=== PATIENT | male | born 1985 | race Caucasian/White ===

== ENCOUNTER 2020-03-26 10:14 | Emergency (ER) | payer OTHER, SELFPAY ==
[2020-03-26 10:26] VITALS: BP 149/102; PULSE 96; RESP 24; TEMP 36.7; O2SAT 100; BMI 28.3
[2020-03-26 10:31] VITALS: BP 149/102; PULSE 98; TEMP -13.3; TEMP 8.1; O2SAT 100
--- NOTE | 2020-03-26 11:09 | ECG_ITS ---
Test Reason : OVERDOSE Blood Pressure : / mmHG Vent. Rate : 092 BPM Atrial Rate : 092 BPM P-R Int : 158 ms QRS Dur : 102 ms QT Int : 358 ms P-R-T Axes : 041 -01 017 degrees QTc Int : 442 ms Normal sinus rhythm Moderate voltage criteria for LVH, may be normal variant Abnormal ECG No previous ECGs available Referred By: [place] Electronically Signed By:SILVER FOLEY MD
--- NOTE | 2020-03-26 11:09 | ED.OVERDOSE ---
HPI - Overdose General Chief Complaint: Overdose <Claribel Mesa MD - Last Filed: 03/26/20 16:31> Stated Complaint: medication overdose <Claribel Mesa MD - Last Filed: 03/26/20 16:31> Time Seen by Provider: 03/26/20 10:55 <Claribel Mesa MD - Last Filed: 03/26/20 16:31> Source: patient <Claribel Mesa MD - Last Filed: 03/26/20 16:31> Mode of arrival: ambulatory <Claribel Mesa MD - Last Filed: 03/26/20 16:31> Limitations: no limitations <MD Stephenie Gardner Last Filed: 03/26/20 16:31> History of Present Illness HPI Narrative: 35-year-old male history of bipolar presented after he drank alcohol last night, feeling stressed and depressed due to has to leave his apartment in 30 days patient overdosed on lithium (talk 9 pills of 300 mg each and Xanax 7 pills of 0.5 mg each ) <Claribel Mesa MD - Last Filed: 03/26/20 16:31> MD complaint: intentional overdose <Claribel Mesa MD - Last Filed: 03/26/20 16:31> Onset (ago): hour(s) (2) <Claribel Mesa MD - Last Filed: 03/26/20 16:31> Intent: suicide attempt <MD Stephenie Gardner Last Filed: 03/26/20 16:31> How Overdose Was Discovered: other ( drove himself to the hospital) <Claribel Mesa MD - Last Filed: 03/26/20 16:31> Context: Intentional Overdose: relationship problems ( girlfriend moved out of the apartment.), financial issues ( Has to evacuate his apartment in 30 days.) and drug/ETOH problems ( Drank alcohol last night.) <MD Stephenie Gardner Last Filed: 03/26/20 16:31> Related Data Home Medications: Home Medications Medication Instructions Recorded Confirmed dextroamphetamine-amphetamine 35 mg PO DAILY 03/27/20 03/27/20 lamotrigine 200 mg PO BEDTIME 03/27/20 03/27/20 lorazepam 0.5 mg PO DAILY PRN 03/27/20 03/27/20 <Claribel Mesa MD - Last Filed: 03/26/20 16:31> Allergies/Adverse Reactions: Allergies Allergy/AdvReac Type Severity Reaction Status Date / Time Penicillins [PENICILLINS] Allergy Intermediate hives Verified 03/27/20 19:17 <Claribel Mesa MD - Last Filed: 03/26/20 16:31> Review of Systems Review of Systems: Yes all other systems are reviewed and are negative <Claribel Mesa MD - Last Filed: 03/26/20 16:31> Constitutional: Constitutional: Reports as per HPI <Claribel Mesa MD - Last Filed: 03/26/20 16:31> Eyes: Eyes: Reports as per HPI <Claribel Mesa MD - Last Filed: 03/26/20 16:31> ENT: Reports system reviewed and no additional complaints, except as documented <Claribel Mesa MD - Last Filed: 03/26/20 16:31> Cardiovascular: Cardiovascular: Reports as per HPI <Claribel Mesa MD - Last Filed: 03/26/20 16:31> Respiratory: Respiratory: Reports as per HPI <Claribel Mesa MD - Last Filed: 03/26/20 16:31> Gastrointestinal: Gastrointestinal: Reports as per HPI <Claribel Mesa MD - Last Filed: 03/26/20 16:31> Musculoskeletal: Musculoskeletal: Reports no additional musculoskeletal complaints <Claribel Mesa MD - Last Filed: 03/26/20 16:31> Neurologic: Reports system reviewed and no additional complaints, except as documented <Claribel Mesa MD - Last Filed: 03/26/20 16:31> Psychiatric: Psychiatric: Reports as per HPI <Claribel Mesa MD - Last Filed: 03/26/20 16:31> PMFSH Past Medical History Medical History: Medical History Bipolar disorder Psychosis <Claribel Mesa MD - Last Filed: 03/26/20 16:31> Social History Social History: Social History Alcohol intake: current Smoking Status: Smoker, status unknown Use of substances other than those prescribed or required for medical reasons: Yes Advance Directives: No Advance Directives Information Provided: Yes Suicidal Behavior: History of suicide attemps Current/Past Psychiatric Disorders: Alcohol abuse, ADHD, Psychotic disorder and Substance abuse <Claribel Mesa MD - Last Filed: 03/26/20 16:31> Physical Exam Vital Signs: Vital Signs: Vital Signs Temp Pulse Resp BP Pulse Ox 03/26/20 10:31 8.1 F L 98 149/102 H 100 03/26/20 10:26 98.1 F 96 24 H 149/102 H 100 Body Mass Index 28.3 <Claribel Mesa MD - Last Filed: 03/26/20 16:31> Vital Signs: Vital Signs Temp Pulse Resp BP Pulse Ox 03/26/20 10:31 8.1 F L 98 149/102 H 100 03/26/20 10:26 98.1 F 96 24 H 149/102 H 100 Body Mass Index 28.3 <ERVIN Mcclendon - Last Filed: 03/27/20 08:25> Vital Signs: Vital Signs Temp Pulse Resp BP Pulse Ox 03/26/20 10:31 8.1 F L 98 149/102 H 100 03/26/20 10:26 98.1 F 96 24 H 149/102 H 100 Body Mass Index 28.3 <ERVIN Hull - Last Filed: 03/29/20 09:40> Vital Signs: Vital Signs Temp Pulse Resp BP Pulse Ox 03/26/20 10:31 8.1 F L 98 149/102 H 100 03/26/20 10:26 98.1 F 96 24 H 149/102 H 100 Body Mass Index 28.3 <Kendal Park MD - Last Filed: 03/31/20 06:44> Const: General: cooperative, healthy appearing, comfortable and no acute distress <Claribel Mesa MD - Last Filed: 03/26/20 16:31> Orientation/consciousness: oriented to person <Claribel Mesa MD - Last Filed: 03/26/20 16:31> HENMT: Head: Yes normal to inspection <Claribel Mesa MD - Last Filed: 03/26/20 16:31> Ears: hearing grossly normal bilaterally <Claribel Mesa MD - Last Filed: 03/26/20 16:31> General nose exam: Normal external nose present <Claribel Mesa MD - Last Filed: 03/26/20 16:31> Eyes: General: appearance normal, both eyes and all related structures <Claribel Mesa MD - Last Filed: 03/26/20 16:31> Eyelids: Yes eyelids normal <Claribel Mesa MD - Last Filed: 03/26/20 16:31> Pupils: Equal, round and reactive pupils present <Claribel Mesa MD - Last Filed: 03/26/20 16:31> Neck: Neck: Yes normal visual inspection <Claribel Msea MD - Last Filed: 03/26/20 16:31> Chest: Chest palpation & inspection: normal inspection of the chest <Claribel Mesa MD - Last Filed: 03/26/20 16:31> Resp: Effort & Inspection: normal respiratory effort <Claribel Mesa MD - Last Filed: 03/26/20 16:31> Cardio: Jugular venous distension: no JVD <Claribel Mesa MD - Last Filed: 03/26/20 16:31> Palpation: normal PMI <Claribel Mesa MD - Last Filed: 03/26/20 16:31> Rate: regular rate <Claribel Mesa MD - Last Filed: 03/26/20 16:31> Rhythm: regular rhythm <Claribel Mesa MD - Last Filed: 03/26/20 16:31> Bruits: Abdominal aortic bruit present <Claribel Mesa MD - Last Filed: 03/26/20 16:31> GI: Inspection: Yes normal to inspection <Claribel Mesa MD - Last Filed: 03/26/20 16:31> Palpation (GI): Abdominal aortic bruit present <Claribel Mesa MD - Last Filed: 03/26/20 16:31> Percussion: Yes normal to percussion <Claribel Mesa MD - Last Filed: 03/26/20 16:31> : General: Yes no CVA tenderness <Claribel Mesa MD - Last Filed: 03/26/20 16:31> Back/Spine/Pelvis: Back: no CVA tenderness <Claribel Mesa MD - Last Filed: 03/26/20 16:31> Skin: General skin exam: no rashes or lesions noted and elasticity normal <Claribel Mesa MD - Last Filed: 03/26/20 16:31> Neuro: General: oriented to person <Claribel Mesa MD - Last Filed: 03/26/20 16:31> Cranial nerves: Yes Equal, round and reactive pupils present <Claribel Mesa MD - Last Filed: 03/26/20 16:31> Extrem: General: Yes normal to inspection <Claribel Mesa MD - Last Filed: 03/26/20 16:31> Psych: Appearance: grossly normal <Claribel Mesa MD - Last Filed: 03/26/20 16:31> Mental Status: mental status grossly normal <Claribel Mesa MD - Last Filed: 03/26/20 16:31> Speech and movement: Normal speech and movement present <Claribel Mesa MD - Last Filed: 03/26/20 16:31> Affect: normal affect <Claribel Mesa MD - Last Filed: 03/26/20 16:31> Attitude: cooperative <Claribel Mesa MD - Last Filed: 03/26/20 16:31> Thought process: Normal thought process present <Claribel Mesa MD - Last Filed: 03/26/20 16:31> Thought content: Normal thought content present <Claribel Mesa MD - Last Filed: 03/26/20 16:31> Insight: Fair insight present (Psych) <Claribel Mesa MD - Last Filed: 03/26/20 16:31> Judgement: Poor judgement present (Psych) <Claribel Mesa MD - Last Filed: 03/26/20 16:31> Course Course Course Narrative: 35-year-old male presented after drinking alcohol and fell depressed overdosed in his own home medication ( took 9 pills of lithium 300 mg each and 7 pills of Xanax 0.5 mg each ). <Claribel Mesa MD - Last Filed: 03/26/20 16:31> MDM - Overdose MDM Narrative Medical decision making narrative: 35 years old male history of bipolar, due to feeling depressed patient overdosed on [place] /Xanax. Case was discussed with poison control to check kidney function /EKG/lithium level. First lithium level was subtherapeutic repeat lithium in 4 hours was increased, reconsulted poison Control who recommended to give IV fluids and repeat lithium after. Case signed out to Dr. Park to check repeat lithium /BHN in consult. <Claribel Mesa MD - Last Filed: 03/26/20 16:31> Lab Data Result diagrams: : 03/26/20 11:20 03/26/20 11:20 <Claribel Mesa MD - Last Filed: 03/26/20 16:31> Labs: Lab Results 03/26/20 03/26/20 03/26/20 Range/Units 11:19 11:19 11:20 WBC (4.8-10.8) X10*3/uL RBC (4.60-5.80) X10*6/uL Hgb (14.0-18.0) g/dl Hct (42-52) % MCV (80-98) fL MCH (27.0-33.0) pg MCHC (31.0-36.0) g/dl RDW (11.0-16.0) % Plt Count (160-400) X10*3/uL MPV (9.4-12.4) fL Absolute Nucleated RBC (0.0-0.012) X10*3/uL Nucleated RBC % (auto) (0.0-0.2) /100WBC Sodium (135-145) mmol/L Potassium (3.3-5.1) mmol/l Chloride (96-108) mmol/L Carbon Dioxide (22-29) mmol/L Anion Gap (12-20) BUN (9-16) mg/dL Creatinine (0.5-1.4) mg/dL Estim Creat Clear Calc Estimated GFR Random Glucose (60-115) mg/dL Calcium (8.4-10.2) mg/dL Magnesium (1.6-2.6) mg/dL Total Bilirubin 0.7 (0.0-1.0) mg/dL Direct Bilirubin 0.2 (0.0-0.5) mg/dL AST 21 (5-37) U/L ALT 23 (0-40) U/L Alkaline Phosphatase 41 (39-117) U/L Total Protein 6.5 (6.5-8.0) g/dL Albumin 4.6 (3.5-5.0) g/dL Lipase 24 (8-78) U/L Urine Color Urine Appearance Urine pH (5.0-8.0) Ur Specific [place] (1.005-1.025) Urine Protein (NEG-TRACE) MG/DL Urine Glucose (UA) (NEG) MG/DL Urine Ketones (NEG) MG/DL Urine Blood (NEG) Urine Nitrite (NEG) Ur Leukocyte Esterase (NEG) Salicylates < 5.0 L (15-30) mg/dL Urine Opiates Screen (Not Detect) Acetaminophen (<30) mcg/mL Ur Barbiturates Screen (Not Detect) Ur Phencyclidine Scrn (Not Detect) Ur Amphetamines Screen (Not Detect) U Benzodiazepines Scrn (Not Detect) [place] 0.21 L (0.60-1.20) mmol/L Urine Cocaine Screen (Not Detect) U Marijuana (THC) Screen (Not Detect) Ethyl Alcohol mg/dL 03/26/20 03/26/20 03/26/20 Range/Units 11:20 11:20 11:20 WBC 6.6 (4.8-10.8) X10*3/uL RBC 4.44 L (4.60-5.80) X10*6/uL Hgb 14.1 (14.0-18.0) g/dl Hct 40.8 L (42-52) % MCV 91.9 (80-98) fL MCH 31.8 (27.0-33.0) pg MCHC 34.6 (31.0-36.0) g/dl RDW 13.1 (11.0-16.0) % Plt Count 221 (160-400) X10*3/uL MPV 11.2 (9.4-12.4) fL Absolute Nucleated RBC 0.000 (0.0-0.012) X10*3/uL Nucleated RBC % (auto) 0.0 (0.0-0.2) /100WBC Sodium 140 (135-145) mmol/L Potassium 4.0 (3.3-5.1) mmol/l Chloride 106 (96-108) mmol/L Carbon Dioxide 24 (22-29) mmol/L Anion Gap 14 (12-20) BUN 15 (9-16) mg/dL Creatinine 0.83 (0.5-1.4) mg/dL Estim Creat Clear Calc 154.2 Estimated GFR > 60 Random Glucose 84 (60-115) mg/dL Calcium 9.1 (8.4-10.2) mg/dL Magnesium 2.0 (1.6-2.6) mg/dL Total Bilirubin (0.0-1.0) mg/dL Direct Bilirubin (0.0-0.5) mg/dL AST (5-37) U/L ALT (0-40) U/L Alkaline Phosphatase (39-117) U/L Total Protein (6.5-8.0) g/dL Albumin (3.5-5.0) g/dL Lipase (8-78) U/L Urine Color Urine Appearance Urine pH (5.0-8.0) Ur Specific [place] (1.005-1.025) Urine Protein (NEG-TRACE) MG/DL Urine Glucose (UA) (NEG) MG/DL Urine Ketones (NEG) MG/DL Urine Blood (NEG) Urine Nitrite (NEG) Ur Leukocyte Esterase (NEG) Salicylates (15-30) mg/dL Urine Opiates Screen (Not Detect) Acetaminophen (<30) mcg/mL Ur Barbiturates Screen (Not Detect) Ur Phencyclidine Scrn (Not Detect) Ur Amphetamines Screen (Not Detect) U Benzodiazepines Scrn (Not Detect) [place] (0.60-1.20) mmol/L Urine Cocaine Screen (Not Detect) U Marijuana (THC) Screen (Not Detect) Ethyl Alcohol 11 mg/dL 03/26/20 03/26/20 03/26/20 Range/Units 11:20 15:40 16:41 WBC (4.8-10.8) X10*3/uL RBC (4.60-5.80) X10*6/uL Hgb (14.0-18.0) g/dl Hct (42-52) % MCV (80-98) fL MCH (27.0-33.0) pg MCHC (31.0-36.0) g/dl RDW (11.0-16.0) % Plt Count (160-400) X10*3/uL MPV (9.4-12.4) fL Absolute Nucleated RBC (0.0-0.012) X10*3/uL Nucleated RBC % (auto) (0.0-0.2) /100WBC Sodium (135-145) mmol/L Potassium (3.3-5.1) mmol/l Chloride (96-108) mmol/L Carbon Dioxide (22-29) mmol/L Anion Gap (12-20) BUN (9-16) mg/dL Creatinine (0.5-1.4) mg/dL Estim Creat Clear Calc Estimated GFR Random Glucose (60-115) mg/dL Calcium (8.4-10.2) mg/dL Magnesium (1.6-2.6) mg/dL Total Bilirubin (0.0-1.0) mg/dL Direct Bilirubin (0.0-0.5) mg/dL AST (5-37) U/L ALT (0-40) U/L Alkaline Phosphatase (39-117) U/L Total Protein (6.5-8.0) g/dL Albumin (3.5-5.0) g/dL Lipase (8-78) U/L Urine Color YELLOW Urine Appearance CLEAR Urine pH 6.5 (5.0-8.0) Ur Specific [place] 1.015 (1.005-1.025) Urine Protein NEG (NEG-TRACE) MG/DL Urine Glucose (UA) NEG (NEG) MG/DL Urine Ketones 5 (NEG) MG/DL Urine Blood NEG (NEG) Urine Nitrite NEG (NEG) Ur Leukocyte Esterase NEG (NEG) Salicylates (15-30) mg/dL Urine Opiates Screen (Not Detect) Acetaminophen < 1 (<30) mcg/mL Ur Barbiturates Screen (Not Detect) Ur Phencyclidine Scrn (Not Detect) Ur Amphetamines Screen (Not Detect) U Benzodiazepines Scrn (Not Detect) [place] 0.85 (0.60-1.20) mmol/L Urine Cocaine Screen (Not Detect) U Marijuana (THC) Screen (Not Detect) Ethyl Alcohol mg/dL 03/26/20 03/26/20 Range/Units 16:41 17:57 WBC (4.8-10.8) X10*3/uL RBC (4.60-5.80) X10*6/uL Hgb (14.0-18.0) g/dl Hct (42-52) % MCV (80-98) fL MCH (27.0-33.0) pg MCHC (31.0-36.0) g/dl RDW (11.0-16.0) % Plt Count (160-400) X10*3/uL MPV (9.4-12.4) fL Absolute Nucleated RBC (0.0-0.012) X10*3/uL Nucleated RBC % (auto) (0.0-0.2) /100WBC Sodium (135-145) mmol/L Potassium (3.3-5.1) mmol/l Chloride (96-108) mmol/L Carbon Dioxide (22-29) mmol/L Anion Gap (12-20) BUN (9-16) mg/dL Creatinine (0.5-1.4) mg/dL Estim Creat Clear Calc Estimated GFR Random Glucose (60-115) mg/dL Calcium (8.4-10.2) mg/dL Magnesium (1.6-2.6) mg/dL Total Bilirubin (0.0-1.0) mg/dL Direct Bilirubin (0.0-0.5) mg/dL AST (5-37) U/L ALT (0-40) U/L Alkaline Phosphatase (39-117) U/L Total Protein (6.5-8.0) g/dL Albumin (3.5-5.0) g/dL Lipase (8-78) U/L Urine Color Urine Appearance Urine pH (5.0-8.0) Ur Specific [place] (1.005-1.025) Urine Protein (NEG-TRACE) MG/DL Urine Glucose (UA) (NEG) MG/DL Urine Ketones (NEG) MG/DL Urine Blood (NEG) Urine Nitrite (NEG) Ur Leukocyte Esterase (NEG) Salicylates (15-30) mg/dL Urine Opiates Screen Not Detected (Not Detect) Acetaminophen (<30) mcg/mL Ur Barbiturates Screen Not Detected (Not Detect) Ur Phencyclidine Scrn Not Detected (Not Detect) Ur Amphetamines Screen POSITIVE H (Not Detect) U Benzodiazepines Scrn Not Detected (Not Detect) [place] 0.73 (0.60-1.20) mmol/L Urine Cocaine Screen Not Detected (Not Detect) U Marijuana (THC) Screen POSITIVE H (Not Detect) Ethyl Alcohol mg/dL <Claribel Mesa MD - Last Filed: 03/26/20 16:31> Lab Results 03/26/20 03/26/20 03/26/20 Range/Units 11:19 11:19 11:20 WBC (4.8-10.8) X10*3/uL RBC (4.60-5.80) X10*6/uL Hgb (14.0-18.0) g/dl Hct (42-52) % MCV (80-98) fL MCH (27.0-33.0) pg MCHC (31.0-36.0) g/dl RDW (11.0-16.0) % Plt Count (160-400) X10*3/uL MPV (9.4-12.4) fL Absolute Nucleated RBC (0.0-0.012) X10*3/uL Nucleated RBC % (auto) (0.0-0.2) /100WBC Sodium (135-145) mmol/L Potassium (3.3-5.1) mmol/l Chloride (96-108) mmol/L Carbon Dioxide (22-29) mmol/L Anion Gap (12-20) BUN (9-16) mg/dL Creatinine (0.5-1.4) mg/dL Estim Creat Clear Calc Estimated GFR Random Glucose (60-115) mg/dL Calcium (8.4-10.2) mg/dL Magnesium (1.6-2.6) mg/dL Total Bilirubin 0.7 (0.0-1.0) mg/dL Direct Bilirubin 0.2 (0.0-0.5) mg/dL AST 21 (5-37) U/L ALT 23 (0-40) U/L Alkaline Phosphatase 41 (39-117) U/L Total Protein 6.5 (6.5-8.0) g/dL Albumin 4.6 (3.5-5.0) g/dL Lipase 24 (8-78) U/L Urine Color Urine Appearance Urine pH (5.0-8.0) Ur Specific [place] (1.005-1.025) Urine Protein (NEG-TRACE) MG/DL Urine Glucose (UA) (NEG) MG/DL Urine Ketones (NEG) MG/DL Urine Blood (NEG) Urine Nitrite (NEG) Ur Leukocyte Esterase (NEG) Salicylates < 5.0 L (15-30) mg/dL Urine Opiates Screen (Not Detect) Acetaminophen (<30) mcg/mL Ur Barbiturates Screen (Not Detect) Ur Phencyclidine Scrn (Not Detect) Ur Amphetamines Screen (Not Detect) U Benzodiazepines Scrn (Not Detect) [place] 0.21 L (0.60-1.20) mmol/L Urine Cocaine Screen (Not Detect) U Marijuana (THC) Screen (Not Detect) Ethyl Alcohol mg/dL 03/26/20 03/26/20 03/26/20 Range/Units 11:20 11:20 11:20 WBC 6.6 (4.8-10.8) X10*3/uL RBC 4.44 L (4.60-5.80) X10*6/uL Hgb 14.1 (14.0-18.0) g/dl Hct 40.8 L (42-52) % MCV 91.9 (80-98) fL MCH 31.8 (27.0-33.0) pg MCHC 34.6 (31.0-36.0) g/dl RDW 13.1 (11.0-16.0) % Plt Count 221 (160-400) X10*3/uL MPV 11.2 (9.4-12.4) fL Absolute Nucleated RBC 0.000 (0.0-0.012) X10*3/uL Nucleated RBC % (auto) 0.0 (0.0-0.2) /100WBC Sodium 140 (135-145) mmol/L Potassium 4.0 (3.3-5.1) mmol/l Chloride 106 (96-108) mmol/L Carbon Dioxide 24 (22-29) mmol/L Anion Gap 14 (12-20) BUN 15 (9-16) mg/dL Creatinine 0.83 (0.5-1.4) mg/dL Estim Creat Clear Calc 154.2 Estimated GFR > 60 Random Glucose 84 (60-115) mg/dL Calcium 9.1 (8.4-10.2) mg/dL Magnesium 2.0 (1.6-2.6) mg/dL Total Bilirubin (0.0-1.0) mg/dL Direct Bilirubin (0.0-0.5) mg/dL AST (5-37) U/L ALT (0-40) U/L Alkaline Phosphatase (39-117) U/L Total Protein (6.5-8.0) g/dL Albumin (3.5-5.0) g/dL Lipase (8-78) U/L Urine Color Urine Appearance Urine pH (5.0-8.0) Ur Specific [place] (1.005-1.025) Urine Protein (NEG-TRACE) MG/DL Urine Glucose (UA) (NEG) MG/DL Urine Ketones (NEG) MG/DL Urine Blood (NEG) Urine Nitrite (NEG) Ur Leukocyte Esterase (NEG) Salicylates (15-30) mg/dL Urine Opiates Screen (Not Detect) Acetaminophen (<30) mcg/mL Ur Barbiturates Screen (Not Detect) Ur Phencyclidine Scrn (Not Detect) Ur Amphetamines Screen (Not Detect) U Benzodiazepines Scrn (Not Detect) [place] (0.60-1.20) mmol/L Urine Cocaine Screen (Not Detect) U Marijuana (THC) Screen (Not Detect) Ethyl Alcohol 11 mg/dL 03/26/20 03/26/20 03/26/20 Range/Units 11:20 15:40 16:41 WBC (4.8-10.8) X10*3/uL RBC (4.60-5.80) X10*6/uL Hgb (14.0-18.0) g/dl Hct (42-52) % MCV (80-98) fL MCH (27.0-33.0) pg MCHC (31.0-36.0) g/dl RDW (11.0-16.0) % Plt Count (160-400) X10*3/uL MPV (9.4-12.4) fL Absolute Nucleated RBC (0.0-0.012) X10*3/uL Nucleated RBC % (auto) (0.0-0.2) /100WBC Sodium (135-145) mmol/L Potassium (3.3-5.1) mmol/l Chloride (96-108) mmol/L Carbon Dioxide (22-29) mmol/L Anion Gap (12-20) BUN (9-16) mg/dL Creatinine (0.5-1.4) mg/dL Estim Creat Clear Calc Estimated GFR Random Glucose (60-115) mg/dL Calcium (8.4-10.2) mg/dL Magnesium (1.6-2.6) mg/dL Total Bilirubin (0.0-1.0) mg/dL Direct Bilirubin (0.0-0.5) mg/dL AST (5-37) U/L ALT (0-40) U/L Alkaline Phosphatase (39-117) U/L Total Protein (6.5-8.0) g/dL Albumin (3.5-5.0) g/dL Lipase (8-78) U/L Urine Color YELLOW Urine Appearance CLEAR Urine pH 6.5 (5.0-8.0) Ur Specific [place] 1.015 (1.005-1.025) Urine Protein NEG (NEG-TRACE) MG/DL Urine Glucose (UA) NEG (NEG) MG/DL Urine Ketones 5 (NEG) MG/DL Urine Blood NEG (NEG) Urine Nitrite NEG (NEG) Ur Leukocyte Esterase NEG (NEG) Salicylates (15-30) mg/dL Urine Opiates Screen (Not Detect) Acetaminophen < 1 (<30) mcg/mL Ur Barbiturates Screen (Not Detect) Ur Phencyclidine Scrn (Not Detect) Ur Amphetamines Screen (Not Detect) U Benzodiazepines Scrn (Not Detect) [place] 0.85 (0.60-1.20) mmol/L Urine Cocaine Screen (Not Detect) U Marijuana (THC) Screen (Not Detect) Ethyl Alcohol mg/dL 03/26/20 03/26/20 Range/Units 16:41 17:57 WBC (4.8-10.8) X10*3/uL RBC (4.60-5.80) X10*6/uL Hgb (14.0-18.0) g/dl Hct (42-52) % MCV (80-98) fL MCH (27.0-33.0) pg MCHC (31.0-36.0) g/dl RDW (11.0-16.0) % Plt Count (160-400) X10*3/uL MPV (9.4-12.4) fL Absolute Nucleated RBC (0.0-0.012) X10*3/uL Nucleated RBC % (auto) (0.0-0.2) /100WBC Sodium (135-145) mmol/L Potassium (3.3-5.1) mmol/l Chloride (96-108) mmol/L Carbon Dioxide (22-29) mmol/L Anion Gap (12-20) BUN (9-16) mg/dL Creatinine (0.5-1.4) mg/dL Estim Creat Clear Calc Estimated GFR Random Glucose (60-115) mg/dL Calcium (8.4-10.2) mg/dL Magnesium (1.6-2.6) mg/dL Total Bilirubin (0.0-1.0) mg/dL Direct Bilirubin (0.0-0.5) mg/dL AST (5-37) U/L ALT (0-40) U/L Alkaline Phosphatase (39-117) U/L Total Protein (6.5-8.0) g/dL Albumin (3.5-5.0) g/dL Lipase (8-78) U/L Urine Color Urine Appearance Urine pH (5.0-8.0) Ur Specific [place] (1.005-1.025) Urine Protein (NEG-TRACE) MG/DL Urine Glucose (UA) (NEG) MG/DL Urine Ketones (NEG) MG/DL Urine Blood (NEG) Urine Nitrite (NEG) Ur Leukocyte Esterase (NEG) Salicylates (15-30) mg/dL Urine Opiates Screen Not Detected (Not Detect) Acetaminophen (<30) mcg/mL Ur Barbiturates Screen Not Detected (Not Detect) Ur Phencyclidine Scrn Not Detected (Not Detect) Ur Amphetamines Screen POSITIVE H (Not Detect) U Benzodiazepines Scrn Not Detected (Not Detect) [place] 0.73 (0.60-1.20) mmol/L Urine Cocaine Screen Not Detected (Not Detect) U Marijuana (THC) Screen POSITIVE H (Not Detect) Ethyl Alcohol mg/dL <ERVIN Mcclendon - Last Filed: 03/27/20 08:25> Lab Results 03/26/20 03/26/20 03/26/20 Range/Units 11:19 11:19 11:20 WBC (4.8-10.8) X10*3/uL RBC (4.60-5.80) X10*6/uL Hgb (14.0-18.0) g/dl Hct (42-52) % MCV (80-98) fL MCH (27.0-33.0) pg MCHC (31.0-36.0) g/dl RDW (11.0-16.0) % Plt Count (160-400) X10*3/uL MPV (9.4-12.4) fL Absolute Nucleated RBC (0.0-0.012) X10*3/uL Nucleated RBC % (auto) (0.0-0.2) /100WBC Sodium (135-145) mmol/L Potassium (3.3-5.1) mmol/l Chloride (96-108) mmol/L Carbon Dioxide (22-29) mmol/L Anion Gap (12-20) BUN (9-16) mg/dL Creatinine (0.5-1.4) mg/dL Estim Creat Clear Calc Estimated GFR Random Glucose (60-115) mg/dL Calcium (8.4-10.2) mg/dL Magnesium (1.6-2.6) mg/dL Total Bilirubin 0.7 (0.0-1.0) mg/dL Direct Bilirubin 0.2 (0.0-0.5) mg/dL AST 21 (5-37) U/L ALT 23 (0-40) U/L Alkaline Phosphatase 41 (39-117) U/L Total Protein 6.5 (6.5-8.0) g/dL Albumin 4.6 (3.5-5.0) g/dL Lipase 24 (8-78) U/L Urine Color Urine Appearance Urine pH (5.0-8.0) Ur Specific [place] (1.005-1.025) Urine Protein (NEG-TRACE) MG/DL Urine Glucose (UA) (NEG) MG/DL Urine Ketones (NEG) MG/DL Urine Blood (NEG) Urine Nitrite (NEG) Ur Leukocyte Esterase (NEG) Salicylates < 5.0 L (15-30) mg/dL Urine Opiates Screen (Not Detect) Acetaminophen (<30) mcg/mL Ur Barbiturates Screen (Not Detect) Ur Phencyclidine Scrn (Not Detect) Ur Amphetamines Screen (Not Detect) U Benzodiazepines Scrn (Not Detect) [place] 0.21 L (0.60-1.20) mmol/L Urine Cocaine Screen (Not Detect) U Marijuana (THC) Screen (Not Detect) Ethyl Alcohol mg/dL 03/26/20 03/26/20 03/26/20 Range/Units 11:20 11:20 11:20 WBC 6.6 (4.8-10.8) X10*3/uL RBC 4.44 L (4.60-5.80) X10*6/uL Hgb 14.1 (14.0-18.0) g/dl Hct 40.8 L (42-52) % MCV 91.9 (80-98) fL MCH 31.8 (27.0-33.0) pg MCHC 34.6 (31.0-36.0) g/dl RDW 13.1 (11.0-16.0) % Plt Count 221 (160-400) X10*3/uL MPV 11.2 (9.4-12.4) fL Absolute Nucleated RBC 0.000 (0.0-0.012) X10*3/uL Nucleated RBC % (auto) 0.0 (0.0-0.2) /100WBC Sodium 140 (135-145) mmol/L Potassium 4.0 (3.3-5.1) mmol/l Chloride 106 (96-108) mmol/L Carbon Dioxide 24 (22-29) mmol/L Anion Gap 14 (12-20) BUN 15 (9-16) mg/dL Creatinine 0.83 (0.5-1.4) mg/dL Estim Creat Clear Calc 154.2 Estimated GFR > 60 Random Glucose 84 (60-115) mg/dL Calcium 9.1 (8.4-10.2) mg/dL Magnesium 2.0 (1.6-2.6) mg/dL Total Bilirubin (0.0-1.0) mg/dL Direct Bilirubin (0.0-0.5) mg/dL AST (5-37) U/L ALT (0-40) U/L Alkaline Phosphatase (39-117) U/L Total Protein (6.5-8.0) g/dL Albumin (3.5-5.0) g/dL Lipase (8-78) U/L Urine Color Urine Appearance Urine pH (5.0-8.0) Ur Specific [place] (1.005-1.025) Urine Protein (NEG-TRACE) MG/DL Urine Glucose (UA) (NEG) MG/DL Urine Ketones (NEG) MG/DL Urine Blood (NEG) Urine Nitrite (NEG) Ur Leukocyte Esterase (NEG) Salicylates (15-30) mg/dL Urine Opiates Screen (Not Detect) Acetaminophen (<30) mcg/mL Ur Barbiturates Screen (Not Detect) Ur Phencyclidine Scrn (Not Detect) Ur Amphetamines Screen (Not Detect) U Benzodiazepines Scrn (Not Detect) [place] (0.60-1.20) mmol/L Urine Cocaine Screen (Not Detect) U Marijuana (THC) Screen (Not Detect) Ethyl Alcohol 11 mg/dL 03/26/20 03/26/20 03/26/20 Range/Units 11:20 15:40 16:41 WBC (4.8-10.8) X10*3/uL RBC (4.60-5.80) X10*6/uL Hgb (14.0-18.0) g/dl Hct (42-52) % MCV (80-98) fL MCH (27.0-33.0) pg MCHC (31.0-36.0) g/dl RDW (11.0-16.0) % Plt Count (160-400) X10*3/uL MPV (9.4-12.4) fL Absolute Nucleated RBC (0.0-0.012) X10*3/uL Nucleated RBC % (auto) (0.0-0.2) /100WBC Sodium (135-145) mmol/L Potassium (3.3-5.1) mmol/l Chloride (96-108) mmol/L Carbon Dioxide (22-29) mmol/L Anion Gap (12-20) BUN (9-16) mg/dL Creatinine (0.5-1.4) mg/dL Estim Creat Clear Calc Estimated GFR Random Glucose (60-115) mg/dL Calcium (8.4-10.2) mg/dL Magnesium (1.6-2.6) mg/dL Total Bilirubin (0.0-1.0) mg/dL Direct Bilirubin (0.0-0.5) mg/dL AST (5-37) U/L ALT (0-40) U/L Alkaline Phosphatase (39-117) U/L Total Protein (6.5-8.0) g/dL Albumin (3.5-5.0) g/dL Lipase (8-78) U/L Urine Color YELLOW Urine Appearance CLEAR Urine pH 6.5 (5.0-8.0) Ur Specific Yermo 1.015 (1.005-1.025) Urine Protein NEG (NEG-TRACE) MG/DL Urine Glucose (UA) NEG (NEG) MG/DL Urine Ketones 5 (NEG) MG/DL Urine Blood NEG (NEG) Urine Nitrite NEG (NEG) Ur Leukocyte Esterase NEG (NEG) Salicylates (15-30) mg/dL Urine Opiates Screen (Not Detect) Acetaminophen < 1 (<30) mcg/mL Ur Barbiturates Screen (Not Detect) Ur Phencyclidine Scrn (Not Detect) Ur Amphetamines Screen (Not Detect) U Benzodiazepines Scrn (Not Detect) Trotwood 0.85 (0.60-1.20) mmol/L Urine Cocaine Screen (Not Detect) U Marijuana (THC) Screen (Not Detect) Ethyl Alcohol mg/dL 03/26/20 03/26/20 Range/Units 16:41 17:57 WBC (4.8-10.8) X10*3/uL RBC (4.60-5.80) X10*6/uL Hgb (14.0-18.0) g/dl Hct (42-52) % MCV (80-98) fL MCH (27.0-33.0) pg MCHC (31.0-36.0) g/dl RDW (11.0-16.0) % Plt Count (160-400) X10*3/uL MPV (9.4-12.4) fL Absolute Nucleated RBC (0.0-0.012) X10*3/uL Nucleated RBC % (auto) (0.0-0.2) /100WBC Sodium (135-145) mmol/L Potassium (3.3-5.1) mmol/l Chloride (96-108) mmol/L Carbon Dioxide (22-29) mmol/L Anion Gap (12-20) BUN (9-16) mg/dL Creatinine (0.5-1.4) mg/dL Estim Creat Clear Calc Estimated GFR Random Glucose (60-115) mg/dL Calcium (8.4-10.2) mg/dL Magnesium (1.6-2.6) mg/dL Total Bilirubin (0.0-1.0) mg/dL Direct Bilirubin (0.0-0.5) mg/dL AST (5-37) U/L ALT (0-40) U/L Alkaline Phosphatase (39-117) U/L Total Protein (6.5-8.0) g/dL Albumin (3.5-5.0) g/dL Lipase (8-78) U/L Urine Color Urine Appearance Urine pH (5.0-8.0) Ur Specific [place] (1.005-1.025) Urine Protein (NEG-TRACE) MG/DL Urine Glucose (UA) (NEG) MG/DL Urine Ketones (NEG) MG/DL Urine Blood (NEG) Urine Nitrite (NEG) Ur Leukocyte Esterase (NEG) Salicylates (15-30) mg/dL Urine Opiates Screen Not Detected (Not Detect) Acetaminophen (<30) mcg/mL Ur Barbiturates Screen Not Detected (Not Detect) Ur Phencyclidine Scrn Not Detected (Not Detect) Ur Amphetamines Screen POSITIVE H (Not Detect) U Benzodiazepines Scrn Not Detected (Not Detect) Trotwood 0.73 (0.60-1.20) mmol/L Urine Cocaine Screen Not Detected (Not Detect) U Marijuana (THC) Screen POSITIVE H (Not Detect) Ethyl Alcohol mg/dL <ERVIN uHll - Last Filed: 03/29/20 09:40> Lab Results 03/26/20 03/26/20 03/26/20 Range/Units 11:19 11:19 11:20 WBC (4.8-10.8) X10*3/uL RBC (4.60-5.80) X10*6/uL Hgb (14.0-18.0) g/dl Hct (42-52) % MCV (80-98) fL MCH (27.0-33.0) pg MCHC (31.0-36.0) g/dl RDW (11.0-16.0) % Plt Count (160-400) X10*3/uL MPV (9.4-12.4) fL Absolute Nucleated RBC (0.0-0.012) X10*3/uL Nucleated RBC % (auto) (0.0-0.2) /100WBC Sodium (135-145) mmol/L Potassium (3.3-5.1) mmol/l Chloride (96-108) mmol/L Carbon Dioxide (22-29) mmol/L Anion Gap (12-20) BUN (9-16) mg/dL Creatinine (0.5-1.4) mg/dL Estim Creat Clear Calc Estimated GFR Random Glucose (60-115) mg/dL Calcium (8.4-10.2) mg/dL Magnesium (1.6-2.6) mg/dL Total Bilirubin 0.7 (0.0-1.0) mg/dL Direct Bilirubin 0.2 (0.0-0.5) mg/dL AST 21 (5-37) U/L ALT 23 (0-40) U/L Alkaline Phosphatase 41 (39-117) U/L Total Protein 6.5 (6.5-8.0) g/dL Albumin 4.6 (3.5-5.0) g/dL Lipase 24 (8-78) U/L Urine Color Urine Appearance Urine pH (5.0-8.0) Ur Specific Y[place] (1.005-1.025) Urine Protein (NEG-TRACE) MG/DL Urine Glucose (UA) (NEG) MG/DL Urine Ketones (NEG) MG/DL Urine Blood (NEG) Urine Nitrite (NEG) Ur Leukocyte Esterase (NEG) Salicylates < 5.0 L (15-30) mg/dL Urine Opiates Screen (Not Detect) Acetaminophen (<30) mcg/mL Ur Barbiturates Screen (Not Detect) Ur Phencyclidine Scrn (Not Detect) Ur Amphetamines Screen (Not Detect) U Benzodiazepines Scrn (Not Detect) Trotwood 0.21 L (0.60-1.20) mmol/L Urine Cocaine Screen (Not Detect) U Marijuana (THC) Screen (Not Detect) Ethyl Alcohol mg/dL 03/26/20 03/26/20 03/26/20 Range/Units 11:20 11:20 11:20 WBC 6.6 (4.8-10.8) X10*3/uL RBC 4.44 L (4.60-5.80) X10*6/uL Hgb 14.1 (14.0-18.0) g/dl Hct 40.8 L (42-52) % MCV 91.9 (80-98) fL MCH 31.8 (27.0-33.0) pg MCHC 34.6 (31.0-36.0) g/dl RDW 13.1 (11.0-16.0) % Plt Count 221 (160-400) X10*3/uL MPV 11.2 (9.4-12.4) fL Absolute Nucleated RBC 0.000 (0.0-0.012) X10*3/uL Nucleated RBC % (auto) 0.0 (0.0-0.2) /100WBC Sodium 140 (135-145) mmol/L Potassium 4.0 (3.3-5.1) mmol/l Chloride 106 (96-108) mmol/L Carbon Dioxide 24 (22-29) mmol/L Anion Gap 14 (12-20) BUN 15 (9-16) mg/dL Creatinine 0.83 (0.5-1.4) mg/dL Estim Creat Clear Calc 154.2 Estimated GFR > 60 Random Glucose 84 (60-115) mg/dL Calcium 9.1 (8.4-10.2) mg/dL Magnesium 2.0 (1.6-2.6) mg/dL Total Bilirubin (0.0-1.0) mg/dL Direct Bilirubin (0.0-0.5) mg/dL AST (5-37) U/L ALT (0-40) U/L Alkaline Phosphatase (39-117) U/L Total Protein (6.5-8.0) g/dL Albumin (3.5-5.0) g/dL Lipase (8-78) U/L Urine Color Urine Appearance Urine pH (5.0-8.0) Ur Specific [place] (1.005-1.025) Urine Protein (NEG-TRACE) MG/DL Urine Glucose (UA) (NEG) MG/DL Urine Ketones (NEG) MG/DL Urine Blood (NEG) Urine Nitrite (NEG) Ur Leukocyte Esterase (NEG) Salicylates (15-30) mg/dL Urine Opiates Screen (Not Detect) Acetaminophen (<30) mcg/mL Ur Barbiturates Screen (Not Detect) Ur Phencyclidine Scrn (Not Detect) Ur Amphetamines Screen (Not Detect) U Benzodiazepines Scrn (Not Detect) Trotwood (0.60-1.20) mmol/L Urine Cocaine Screen (Not Detect) U Marijuana (THC) Screen (Not Detect) Ethyl Alcohol 11 mg/dL 03/26/20 03/26/20 03/26/20 Range/Units 11:20 15:40 16:41 WBC (4.8-10.8) X10*3/uL RBC (4.60-5.80) X10*6/uL Hgb (14.0-18.0) g/dl Hct (42-52) % MCV (80-98) fL MCH (27.0-33.0) pg MCHC (31.0-36.0) g/dl RDW (11.0-16.0) % Plt Count (160-400) X10*3/uL MPV (9.4-12.4) fL Absolute Nucleated RBC (0.0-0.012) X10*3/uL Nucleated RBC % (auto) (0.0-0.2) /100WBC Sodium (135-145) mmol/L Potassium (3.3-5.1) mmol/l Chloride (96-108) mmol/L Carbon Dioxide (22-29) mmol/L Anion Gap (12-20) BUN (9-16) mg/dL Creatinine (0.5-1.4) mg/dL Estim Creat Clear Calc Estimated GFR Random Glucose (60-115) mg/dL Calcium (8.4-10.2) mg/dL Magnesium (1.6-2.6) mg/dL Total Bilirubin (0.0-1.0) mg/dL Direct Bilirubin (0.0-0.5) mg/dL AST (5-37) U/L ALT (0-40) U/L Alkaline Phosphatase (39-117) U/L Total Protein (6.5-8.0) g/dL Albumin (3.5-5.0) g/dL Lipase (8-78) U/L Urine Color YELLOW Urine Appearance CLEAR Urine pH 6.5 (5.0-8.0) Ur Specific [place] 1.015 (1.005-1.025) Urine Protein NEG (NEG-TRACE) MG/DL Urine Glucose (UA) NEG (NEG) MG/DL Urine Ketones 5 (NEG) MG/DL Urine Blood NEG (NEG) Urine Nitrite NEG (NEG) Ur Leukocyte Esterase NEG (NEG) Salicylates (15-30) mg/dL Urine Opiates Screen (Not Detect) Acetaminophen < 1 (<30) mcg/mL Ur Barbiturates Screen (Not Detect) Ur Phencyclidine Scrn (Not Detect) Ur Amphetamines Screen (Not Detect) U Benzodiazepines Scrn (Not Detect) [place]wood 0.85 (0.60-1.20) mmol/L Urine Cocaine Screen (Not Detect) U Marijuana (THC) Screen (Not Detect) Ethyl Alcohol mg/dL 03/26/20 03/26/20 Range/Units 16:41 17:57 WBC (4.8-10.8) X10*3/uL RBC (4.60-5.80) X10*6/uL Hgb (14.0-18.0) g/dl Hct (42-52) % MCV (80-98) fL MCH (27.0-33.0) pg MCHC (31.0-36.0) g/dl RDW (11.0-16.0) % Plt Count (160-400) X10*3/uL MPV (9.4-12.4) fL Absolute Nucleated RBC (0.0-0.012) X10*3/uL Nucleated RBC % (auto) (0.0-0.2) /100WBC Sodium (135-145) mmol/L Potassium (3.3-5.1) mmol/l Chloride (96-108) mmol/L Carbon Dioxide (22-29) mmol/L Anion Gap (12-20) BUN (9-16) mg/dL Creatinine (0.5-1.4) mg/dL Estim Creat Clear Calc Estimated GFR Random Glucose (60-115) mg/dL Calcium (8.4-10.2) mg/dL Magnesium (1.6-2.6) mg/dL Total Bilirubin (0.0-1.0) mg/dL Direct Bilirubin (0.0-0.5) mg/dL AST (5-37) U/L ALT (0-40) U/L Alkaline Phosphatase (39-117) U/L Total Protein (6.5-8.0) g/dL Albumin (3.5-5.0) g/dL Lipase (8-78) U/L Urine Color Urine Appearance Urine pH (5.0-8.0) Ur Specific [place] (1.005-1.025) Urine Protein (NEG-TRACE) MG/DL Urine Glucose (UA) (NEG) MG/DL Urine Ketones (NEG) MG/DL Urine Blood (NEG) Urine Nitrite (NEG) Ur Leukocyte Esterase (NEG) Salicylates (15-30) mg/dL Urine Opiates Screen Not Detected (Not Detect) Acetaminophen (<30) mcg/mL Ur Barbiturates Screen Not Detected (Not Detect) Ur Phencyclidine Scrn Not Detected (Not Detect) Ur Amphetamines Screen POSITIVE H (Not Detect) U Benzodiazepines Scrn Not Detected (Not Detect) Trotwood 0.73 (0.60-1.20) mmol/L Urine Cocaine Screen Not Detected (Not Detect) U Marijuana (THC) Screen POSITIVE H (Not Detect) Ethyl Alcohol mg/dL <Kendal Park MD - Last Filed: 03/31/20 06:44> ECG Data Pacemaker model: Normal sinus rhythm at 92 beats per minutes, LVH, normal axis deviation. <Claribel Mesa MD - Last Filed: 03/26/20 16:31> Discharge Plan Discharge Clinical Impression: Drug overdose, Bipolar 1 disorder, depressed, severe <Claribel Mesa MD - Last Filed: 03/26/20 16:31> Patient Disposition: Home, Self-Care <Claribel Mesa MD - Last Filed: 03/26/20 16:31> Instructions: Bipolar Disorder (ED), Suicide Prevention (ED) <Claribel Mesa MD - Last Filed: 03/26/20 16:31> Additional Instructions: Follow up with your Psychiatrist this week for medication management. Follow up with the therapist provided to you by Luis. If you are having recurrent thoughts of self-harm or suicide call 911 or come to the ER for evaluation. <Claribel Mesa MD - Last Filed: 03/26/20 16:31> Prescriptions: No Action lorazepam 0.5 mg tablet 0.5 mg PO DAILY PRN (Reason: Anxiety) RF: 0 dextroamphetamine-amphetamine 20 mg tablet 35 mg PO DAILY RF: 0 lamotrigine 100 mg tablet 200 mg PO BEDTIME RF: 0 <Claribel Mesa MD - Last Filed: 03/26/20 16:31> Stand Alone Forms: Work/School Release <Claribel Mesa MD - Last Filed: 03/26/20 16:31> Interventions: ED Discharge Assessment Last Done: 03/29/20 09:39 <Claribel Mesa MD - Last Filed: 03/26/20 16:31> Discharge Date/Time: 03/29/20 09:41 <Claribel Mesa MD - Last Filed: 03/26/20 16:31> Sign Out Sign Out Data: Patient Sign Out occurred on 03/26/20 at 16:39. After a detailed discussion of the patient's case, care was transferred from Claribel Mesa MD to Kendal Park MD. Sign Out Comment: await for lithium level then bhn consult. Last updated by Claribel Mesa MD at 03/26/20 16:38 <Claribel Mesa MD - Last Filed: 03/26/20 16:31>
[2020-03-26] MEDS: 0.9 % Sodium Chloride 1,000 ML 999 ML IVCONT ×3 (11:22→17:33)
[2020-03-26 11:34] LABS: Hematocrit 40.8 % (42-52); Hemoglobin 14.1 g/dl (14.0-18.0); Mean Corpuscular HGB Conc 34.6 g/dl (31.0-36.0); Mean Corpuscular Hemoglobin 31.8 pg (27.0-33.0); Mean Corpuscular Volume 91.9 fL (80-98); Mean Platelet Volume 11.2 fL (9.4-12.4); Platelet Count 221 X10*3/uL (160-400); Red Blood Count 4.44 X10*6/uL (4.60-5.80); Red Cell Distribution Width 13.1 % (11.0-16.0); White Blood Count 6.6 X10*3/uL (4.8-10.8)
[2020-03-26 11:51] LABS: Acetaminophen LAB < 1 mcg/mL (<30)
[2020-03-26 11:54] LABS: Alanine Aminotransferase 23 U/L (0-40); Albumin Level 4.6 g/dL (3.5-5.0); Alkaline Phosphatase 41 U/L (39-117); Aspartate Amino Transferase 21 U/L (5-37); Bilirubin Direct 0.2 mg/dL (0.0-0.5); Bilirubin Total 0.7 mg/dL (0.0-1.0); Lipase 24 U/L (8-78); Total Protein 6.5 g/dL (6.5-8.0)
[2020-03-26 11:54] LABS: Salicylate < 5.0 mg/dL (15-30)
[2020-03-26 11:56] LABS: Lithium 0.21 mmol/L (0.60-1.20)
[2020-03-26 12:11] LABS: Anion Gap 14 (12-20); Blood Urea Nitrogen 15 mg/dL (9-16); Calcium 9.1 mg/dL (8.4-10.2); Carbon Dioxide 24 mmol/L (22-29); Chloride 106 mmol/L (96-108); Creatinine Clr Calc Pharmacy 154.2; Estimated Glomerular Filt Rate > 60; Glucose Random 84 mg/dL (60-115); Sodium 140 mmol/L (135-145)
[2020-03-26 12:15] LABS: Ethanol 11 mg/dL
--- NOTE | 2020-03-26 13:52 | PC.NURSE ---
pt information faxed to ning
--- NOTE | 2020-03-26 14:09 | PC.NURSE ---
poison control states that the lab levels are good, just want to perform a lithium redraw x4 hours after first draw. will perform at 1500.
[2020-03-26 16:04] LABS: Lithium 0.85 mmol/L (0.60-1.20)
[2020-03-26 16:46] LABS: Glucose Urine UA NEG (NEG); Leukocyte Esterase Urine NEG (NEG); Nitrite Urine NEG (NEG); PH 6.5 (5.0-8.0); Specific Gravity - Urine 1.015 (1.005-1.025); Urine Blood NEG (NEG); Urine Ketones 5 MG/DL (NEG); Urine Protein NEG (NEG-TRACE)
[2020-03-26 16:47] LABS: Color Urine YELLOW
[2020-03-26 16:48] LABS: Appearance Urine CLEAR
[2020-03-26 17:30] LABS: Amphetamine Screen Urine POSITIVE (Not Detect); Barbiturates, Urine Not Detected (Not Detect); Benzodiazepines Screen Urine Not Detected (Not Detect); Cannabinoid Screen Urine POSITIVE (Not Detect); Cocaine Screen Urine Not Detected (Not Detect); Opiate Screen Urine Not Detected (Not Detect); Phencyclidine Screen Urine Not Detected (Not Detect)
[2020-03-26 18:27] LABS: Lithium 0.73 mmol/L (0.60-1.20)
[2020-03-26 18:31] VITALS: BP 117/80; PULSE 88; RESP 18
--- NOTE | 2020-03-26 19:03 | PC.NURSE ---
pt is oob getting numbers from his phone. pt states he doesnt want to answer questions at this time. pt was asked if he felt s1 h1 depressed and stated he needs to think before he answers the question. pt skin pink warm and dry no s/s of distress. pt is calm and cooperative, drink and sandwhich given. steady gait.
--- NOTE | 2020-03-26 22:28 | PC.NURSE ---
poison controll called and they are signing off on this pt. lithium levels reviewed and vitals. pt is stable walking with steady gait. pt is sleeping at this time. skin pink warm and dry.
--- NOTE | 2020-03-27 01:33 | PC.NURSE ---
pt oob to bathroom and for a gingerale. pt skin pink warm and dry, no s/s of distress, steady gait. needs met. pt visable on the monitor.
[2020-03-27 06:37] VITALS: BP 103/72; PULSE 62; RESP 17; TEMP 36.7; O2SAT 97
--- NOTE | 2020-03-27 07:23 | PC.NURSE ---
Report received. PT sleeping in bed. Breathing is even and unlabored. Inpatient bed search in progress.
--- NOTE | 2020-03-27 08:36 | PC.NURSE ---
PT is resting in bed. Calm and cooperative. PT asking to leave. Plan of care explained. PT requesting to speak with [facility] again.
[2020-03-27 08:48] VITALS: BP 117/67; PULSE 62; RESP 18; TEMP 37.1; O2SAT 98
--- NOTE | 2020-03-27 10:09 | PC.NURSE ---
PT is resting in bed. Calm and cooperative. No complaints at this time.
--- NOTE | 2020-03-27 12:05 | PC.NURSE ---
PT is watching TV in bed. Calm and cooperative. No other complaints.
--- NOTE | 2020-03-27 12:45 | PC.NURSE ---
Pt declined to discuss medications, states i don't want you guys to give me anything except maybe ativan, i just want to get the fuck out of here plan of care explained, importance of continuing medication explained, pt continues to decline.
[2020-03-27] MEDS: LORazepam 1 MG TABLET 2 MG PO (13:00)
--- NOTE | 2020-03-27 14:36 | PC.NURSE ---
PT is on the phone with his family. Calm and cooperative. No other complaints.
--- NOTE | 2020-03-27 16:17 | PC.NURSE ---
PT is sleeping in bed. Breathing is even and unlabored. Bed search in progress.
[2020-03-27 20:00] VITALS: RESP 18
[2020-03-27] MEDS: LORazepam 0.5 MG TABLET PO (20:37)
[2020-03-27] MEDS: lamoTRIgine 100 MG TABLET 200 MG PO (20:37)
[2020-03-27 21:54] VITALS: RESP 18
[2020-03-27 23:55] VITALS: RESP 18
--- NOTE | 2020-03-27 23:58 | PC.NURSE ---
S/E: Report received from Andre. Pt watching Tv during shift change. Clear speech. steady gait. Scheduled HS med given along with prn ativan 0.5 mg PO with good effect. NAD. awaiting for inpatient bedsearch. Will continue to monitor.
[2020-03-28 02:00] VITALS: RESP 18
[2020-03-28 03:50] VITALS: RESP 18
[2020-03-28 05:24] VITALS: RESP 18
--- NOTE | 2020-03-28 07:28 | PC.NURSE ---
Report received from NIK Santoro. Pt awake, eatinmh breakfast, affect even.
[2020-03-28 08:00] VITALS: BP 112/71; PULSE 67; RESP 20; TEMP 37.1
[2020-03-28] MEDS: LORazepam 1 MG TABLET PO (08:27)
--- NOTE | 2020-03-28 08:59 | PC.NURSE ---
Pt awake, alert, requesting ativan for anxiety, declining stimulant medication this morning due to anxiety. Pt adament that he is not suicidal, states that 'this was all a stupid mistake. I had too much to drink, I just want to go home.' pt states that he 'will go crazy' if he has to be here any longer. States he has been here all weekend.
[2020-03-28] MEDS: LORazepam 1 MG TABLET 2 MG PO (16:03)
--- NOTE | 2020-03-28 16:10 | PC.NURSE ---
Pt becoming increasingly agitated, re:dispo, yelling and arguing with staff. [facility] will see patient when bed search is exhausted, no exact time given. Pt given ativan 2 mg po. Currently in room, resting in bed.
[2020-03-28 16:50] VITALS: BP 125/79; PULSE 52; RESP 18; TEMP 36.1; O2SAT 99
--- NOTE | 2020-03-28 18:09 | PC.NURSE ---
Pt awake, on telephone. speech pressured. denies si. reports that this was 'a stupid mistake...a cry for attention...everybody makes mistakes.'
--- NOTE | 2020-03-28 20:48 | PC.NURSE ---
Pt asleep at current. No signs of distress. Respirations nonlabored. Continues to be a section 12 bed search.
[2020-03-28] MEDS: lamoTRIgine 100 MG TABLET 200 MG PO (22:06)
[2020-03-28] MEDS: LORazepam 0.5 MG TABLET PO (22:06)
--- NOTE | 2020-03-28 22:20 | PC.NURSE ---
Patient compliant with HS PO medication, administered PRN Ativan 0.5 mg as requested for anxiety, wanted to speak with [facility] clinician, [facility] called to check availability of clinician spoke with Gideon, reported no clinician available for tonight. Patient denied distress, will continue to monitor.
[2020-03-29 07:56] VITALS: BP 112/72; PULSE 57; RESP 17; TEMP 36.8; O2SAT 98
[2020-03-29] MEDS: LORazepam 1 MG TABLET 2 MG PO (08:32)
--- NOTE | 2020-03-29 09:00 | PC.NURSE ---
[facility] in to evaluate
--- NOTE | 2020-03-29 09:05 | PC.NURSE ---
pt seen by ning
--- NOTE | 2020-03-29 09:38 | PC.NURSE ---
Pt seen by n, pt to be discharged, states he is safe to go, has consistently denied si. affect bright.
== END 2020-03-29 09:41 | disposition home or self-care (01) ==
PROVIDERS: Emergency Medicine; Emergency Provider Emergency Medicine
DX: T42.4X2A Poisoning by benzodiazepines, intentional self-harm, initial encounter (principal); T56.892A Toxic effect of other metals, intentional self-harm, initial encounter; Y92.009 Unspecified place in unspecified non-institutional (private) residence as the place of occurrence of the external cause; F31.5 Bipolar disorder, current episode depressed, severe, with psychotic features; Z79.899 Other long term (current) drug therapy; Z72.89 Other problems related to lifestyle
CPT/HCPCS: 36415; 80048; 80076; 80178; 80307; 80320; 81003; 83690; 83735; 85027; 93005; 96360; 96361; 99285; G0480

== ENCOUNTER → 2020-04-14 11:37 | Outpatient (BNVA) | payer SELFPAY | PROVIDERS: Visit Provider Internal Medicine | DX: Z76.89 Persons encountering health services in other specified circumstances (principal) ==

== ENCOUNTER → 2022-09-10 11:46 | Outpatient (BNVA) | payer OTHER, SELFPAY | PROVIDERS: Visit Provider Internal Medicine | DX: S80.871A Other superficial bite, right lower leg, initial encounter (principal); W54.0XXA Bitten by dog, initial encounter | CPT/HCPCS: 99202 ==

== ENCOUNTER → 2022-09-13 12:55 | Outpatient (BNVA) | payer OTHER, SELFPAY | PROVIDERS: Visit Provider Physician Assistant | DX: S80.871A Other superficial bite, right lower leg, initial encounter (principal); W54.0XXA Bitten by dog, initial encounter | CPT/HCPCS: 99213 ==

== ENCOUNTER → 2023-08-08 14:10 | Outpatient (BNVA) | payer OTHER, SELFPAY | PROVIDERS: Visit Provider Physician Assistant | DX: S39.012A Strain of muscle, fascia and tendon of lower back, initial encounter (principal); V89.2XXA Person injured in unspecified motor-vehicle accident, traffic, initial encounter | CPT/HCPCS: 99203 ==

== ENCOUNTER → 2023-08-12 09:32 | Outpatient (BNVA) | payer OTHER, SELFPAY | PROVIDERS: Visit Provider Internal Medicine | DX: S39.012A Strain of muscle, fascia and tendon of lower back, initial encounter (principal); V89.2XXA Person injured in unspecified motor-vehicle accident, traffic, initial encounter | CPT/HCPCS: 99213 ==

== ENCOUNTER → 2024-10-19 10:24 | Outpatient (BNVA) | payer OTHER, SELFPAY | PROVIDERS: Visit Provider Physician Assistant Medical | DX: M23.8X1 Other internal derangements of right knee (principal); S83.411A Sprain of medial collateral ligament of right knee, initial encounter; S83.8X1A Sprain of other specified parts of right knee, initial encounter; X50.1XXA Overexertion from prolonged static or awkward postures, initial encounter | CPT/HCPCS: 73564; 99204 ==

== ENCOUNTER → 2024-11-04 09:28 | Outpatient (BNVA) | payer OTHER, SELFPAY | PROVIDERS: Visit Provider Physician Assistant | DX: M23.91 Unspecified internal derangement of right knee (principal) | CPT/HCPCS: 99213 ==

== ENCOUNTER → 2024-11-16 08:41 | Outpatient (BNVA) | payer OTHER, SELFPAY | PROVIDERS: Visit Provider Physician Assistant Medical | DX: M23.8X1 Other internal derangements of right knee (principal) | CPT/HCPCS: 99213 ==

== ENCOUNTER → 2024-11-30 10:05 | Outpatient (BNVA) | payer OTHER, SELFPAY | PROVIDERS: Visit Provider Physician Assistant Medical | DX: M23.8X1 Other internal derangements of right knee (principal); Z02.79 Encounter for issue of other medical certificate | CPT/HCPCS: 99213 ==

== ENCOUNTER → 2024-12-14 10:12 | Outpatient (BNVA) | payer OTHER, SELFPAY | PROVIDERS: Visit Provider Physician Assistant Medical | DX: M23.91 Unspecified internal derangement of right knee (principal); Z02.79 Encounter for issue of other medical certificate | CPT/HCPCS: 99213 ==

== ENCOUNTER → 2025-01-11 07:55 | Outpatient (BNV) | payer OTHER, SELFPAY | PROVIDERS: Visit Provider Radiology Diagnostic Radiology | DX: M17.11 Unilateral primary osteoarthritis, right knee (principal) | CPT/HCPCS: 73721 ==

== ENCOUNTER 2025-01-11 07:56 | Outpatient (REF) | payer OTHER, SELFPAY ==
--- NOTE | ~2025-01-11 | MR_ITS ---
EXAM: MRI LOWER EXTREMITY JOINT, KNEE, right TECHNIQUE: Multiplanar multisequence MR imaging performed through the right knee without contrast. INDICATION: Internal derangement of the right knee PRIOR: X-ray on October 19, 2024 FINDINGS: Menisci: Lateral Meniscus: Linear oblique intermediate signal in the posterior horn extends to the peripheral surface but not to the articular surface.. There is apparent meniscal cyst 2.5 mm in diameter near the root of the anterior horn of the lateral meniscus raising question of an occult tear. Medial Meniscus: No abnormal signal in the meniscus to suggest a tear. See impression. ACL/PCL: ACL is intact. PCL is intact. Extensor mechanism: There is mild edema like signal superior lateral fat pad of Hoffa. There is mildly increased signal in the deep proximal fibers of the patellar tendon. There is a physiologic volume of joint fluid. There is lateral patellar tilt. Median ridge of patella is 6 mm lateral to the trochlear groove. MCL/LCL: MCL is intact. LCL is intact. Articular cartilage: Patellofemoral Compartment: There is irregular partial and full-thickness articular cartilage defect involving the middle third lower third patella, lateral facet and median ridge with associated reactive marrow signal change in the upper lateral facet and inferior margin of the lateral facet. Medial facet articular cartilage is intact. There is a full-thickness fissure in the middle third trochlea, the junction of trochlear groove and lateral facet. There is irregular partial thickness articular cartilage defect in the superior aspect of lateral trochlea 13 mm wide involving slightly more than half of the cartilage thickness. Lateral Compartment: There is a 4 mm shallow partial thickness articular cartilage defect in the central weightbearing region of the lateral tibial plateau. There is a deep partial thickness articular cartilage defect 9 mm diameter involving the lateral side of the medial femoral condyle near the base of the lateral tibial spine. Medial Compartment: Intact Bones/Marrow: There are small marginal osteophytes involving the medial compartment, lateral compartment, and patellofemoral joint. Aside from a few small benign bone island, and aforementioned reactive marrow signal change in the patella, bone marrow signal is physiologic. Soft tissues: There is an 11 mm multiloculated cyst situated near the PCL footprint and posterior root of the medial meniscus. MR/MR knee RT wo con IMPRESSION: Moderate osteoarthritis with articular cartilage loss greatest involving lateral facet of patella, lateral facet of trochlea, followed by the lateral compartment. See articular cartilage section. Suspected patellar tendon-lateral femoral condyle friction syndrome: There is edema like signal in the superior lateral fat pad of Hoffa. There is moderate patellofemoral incongruence and lateral patellar tilt. 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 There is a small parameniscal cyst near the anterior root of the lateral meniscus raising question of an occult tear. Additionally, there is a multiloculated cyst extending between posterior root of medial meniscus and tibial footprint of PCL. This could represent a parameniscal cyst from an occult root tear of the medial meniscal root versus a ganglion or synovial cyst associated with the PCL. Mild tendinopathy involving the deep proximal fibers of the patellar tendon of unlikely clinical significance. Correlate clinically. Electronically signed by: Phil Velazco MD 01/11/2025 10:29 AM EDT
--- OUTSIDE RECORDS SUMMARY | 2025-01-11 08:00 | XMS_ITS | Encounter Summary ---
Author Organization [facility] Address [address] [place] [id number] Phone Care Team Providers Care Retail Marketing Coordinator Name Role Phone Pcp, Unknown Primary Care Provider Unavailabl e Encounter Details Date Type Department Care Team (Late st Contact Info) Description 11/20/2021 Procedure Pass [facility], Ct Scan - [address] [id number] Social History Tobacco Use Types Packs/Day Years Used Date Smoking Tobacco: Every Day Smokeless Tobacco: Never Sex and Gender Information Value Date Recorded Sex Assigned at Not on file Legal Sex Male 12:01 PM EDT Gender Identity Not on file Sexual Orientation Not on file documented as of this encounter Functional Status * Calculated C-SSRS Risk Score (Lifetime/Recent) Answer Date of Assessment Author No Risk Indicated 11/20/2021 11:39 AM EDT Timmy Garza, NIK * [place] Suicide Severity Rating Scale (Screener/Recent Self-Report) Question Answer Date of Assessment Author 1. Wish to be (Past 1 Month) No 11/20/2021 11:39 AM EDT Jo Ann Frausto, NIK 2. Non-Specific Active Suicidal Thoughts (Past 1 Month) No 11/20/2021 11:39 AM VICTORIAT Jo Ann Frausto, NIK 6. Suicidal Behavior (Lifetime) No 11/20/2021 11:39 AM VICTORIAT Jo Ann Frausto, NIK documented as of this encounter Plan of Treatment Not on file documented as of this encounter Visit Diagnoses Not on filedocumented in this encounter Additional Health Concerns Infection Onset Date Last Indicated Resolved Time CoV-Risk 06/13/2023 06/13/2023 06/24/2023 1:22 AM EST documented as of this encounter Care Teams Retail Marketing Coordinator Relationship Specialty Start Date End Date Pcp, Unknown PCP - General 11/20/21 documented as of this encounter Additional Source Comments The information contained in this document represents components of the legal health record. It is not the complete legal health record.[facility]
== END 2025-01-11 07:57 | disposition home or self-care (01) ==
LOC: HO.MRI 07:56
PROVIDERS: Visit Provider Internal Medicine
DX: M23.91 Unspecified internal derangement of right knee (principal)
CPT/HCPCS: 73721

== ENCOUNTER → 2025-01-11 13:58 | Outpatient (BNVA) | payer OTHER, SELFPAY | PROVIDERS: Visit Provider Physician Assistant Medical | DX: M23.91 Unspecified internal derangement of right knee (principal); M25.861 Other specified joint disorders, right knee; M17.11 Unilateral primary osteoarthritis, right knee; M23.003 Cystic meniscus, unspecified medial meniscus, right knee; M23.000 Cystic meniscus, unspecified lateral meniscus, right knee; Z02.79 Encounter for issue of other medical certificate | CPT/HCPCS: 99213 ==

== ENCOUNTER 2025-01-20 08:00 | Outpatient (RCR) | payer OTHER, SELFPAY ==
--- NOTE | 2024-10-29 07:08 | MHC.PT.EP ---
[facility] [place] Office [place] [facility] [place] Office [address] [place] Gerardo [address] [phone] F: [phone] F: [phone] F: [phone] F: [phone] Physical Therapy Plan of Care Date of Evaluation: 10/29/24 Date of Surgery: Diagnosis: R knee derangement Assessment: Patient is a 39 year old R handed male who presents with s/s consistent with R knee derangement, R knee pain. He works with daily job demands including [email or web address]. Patient past medical history includes fractures on both LE including R proximal tibia. Current impairments include pain, gait mechanics, ROM, strength, activity tolerance and functional mobility. Functional limitations include decreased ability to walk, stand, sleep, climb ladders, and be on feet longer durations. Patient is motivated with good rehab potential. Skilled PT will address impairments and functional limitations in order to achieve goals. Frequency and Duration: The patient will be seen 2x/week for 5 weeks Short Term Goals: I with HEP -2 weeks 90/90 HS lacking < 30 on R - 3 weeks TTP absent - 3 weeks Pain free with walking > 30 minute - 3 weeks Yarder Puncher Goals: hip strenght 4+/5 b/l - 5 weeks LEFS improve by 12 pts - 5 weeks Stair negotiation pain free - 5 weeks Able to return to all daily activities pain free - 5 weeks Treatment Plan: Modalities to reduce pain, spasms and effusion. Manual therapy to restore motion and function. Therapeutic exercise to improve strength and flexibility. Neuromuscular re-education for posture and balance. Therapeutic activities to return to functional activities of daily living. Electronically signed by: Orlando Ramirez, PT Please sign and return to therapist. Thank you for your referral.
--- NOTE | 2025-03-02 14:15 | MHC.PT.EP ---
[facility] [place] Office [place] Office [place] Office [address] Fransisco Gerardo [address] [phone] F: [phone] F: [phone] F: [phone] F: [phone] Physical Therapy Plan of Care Date of Evaluation: 10/29/24 Date of Surgery: Diagnosis: R knee derangement Assessment: Patient is a 39 year old R handed male who presents with s/s consistent with R knee derangement, R knee pain. He works with daily job demands including [employer]. Patient past medical history includes fractures on both LE including R proximal tibia. Current impairments include pain, gait mechanics, ROM, strength, activity tolerance and functional mobility. Functional limitations include decreased ability to walk, stand, sleep, climb ladders, and be on feet longer durations. Patient is motivated with good rehab potential. Skilled PT will address impairments and functional limitations in order to achieve goals. Frequency and Duration: The patient will be seen 2x/week for 5 weeks Short Term Goals: I with HEP -2 weeks 90/90 HS lacking < 30 on R - 3 weeks TTP absent - 3 weeks Pain free with walking > 30 minute - 3 weeks Didactic Program In Dietetics Director Goals: hip strenght 4+/5 b/l - 5 weeks LEFS improve by 12 pts - 5 weeks Stair negotiation pain free - 5 weeks Able to return to all daily activities pain free - 5 weeks Treatment Plan: Modalities to reduce pain, spasms and effusion. Manual therapy to restore motion and function. Therapeutic exercise to improve strength and flexibility. Neuromuscular re-education for posture and balance. Therapeutic activities to return to functional activities of daily living. Electronically signed by: Orlando Ramirez, PT Please sign and return to therapist. Thank you for your referral.
--- NOTE | 2025-03-19 08:59 | MHC.PT.DC ---
[facility] [place] [facility] [place] Office [place] Office [address] Fransisco Gerardo [address] [phone] F: [phone] F: [phone] F: [phone] F: [phone] Physical Therapy Discharge Report Diagnosis: R knee derangement Date of Surgery: Date of Evaluation: 10/29/24 Date of Discharge: 01/20/25 Treatments to Date: 10 Cancellations to Date: No Shows to Date: Discharge Status: Independent with HEP Discharge Summary: 01/20/25: reviewed and re-issued HEP primarily for stretching. answered all questions related to pathology. due to lack of sustained progress on s/s, we will d/c to HEP at this time and refer back to MD for further management as needed. AROM 142 on R. 90/90 lacking 30 on R. TTP still present. I with HEP. LEFS 48/80. Pain noted with stairs and ladder climbing. 01/18/25: reviewed HEP. encouraged pt to continue with hip and knee stretching, hip strength. we discussed appropriate next steps for best management including ortho consult for discerning best next steps as PT has been unable to resolve s/s. 01/11/25: MRI this AM. we will likely finish up last 2 appts then rec consult with ortho. 12/17/24: held some of therex due to pt not feeling up to it. will attempt to resume NV. 12/04/24: pt acquired new inserts to address pronation of foot. we discussed hip strength, mechanics and footwear in depth. added stretching for hip muscles. 11/27/24: pt with good tolerance to above program with edu on mechanics. shuttle band progressed. good mechanics. 11/18/24: progressing well with skilled PT. edu significantly on mechanics and importance of proper footwear and hip strength. 11/11/24: pt has been feeling like hips are tight and contributing to pain. added strength/stretching today with edu on mechanics. assess response and progress HEP next visit. Patient is a 39 year old R handed male who presents with s/s consistent with R knee derangement, R knee pain. He works with daily job demands including [employer]. Patient past medical history includes fractures on both LE including R proximal tibia. Current impairments include pain, gait mechanics, ROM, strength, activity tolerance and functional mobility. Functional limitations include decreased ability to walk, stand, sleep, climb ladders, and be on feet longer durations. Patient is motivated with good rehab potential. Skilled PT will address impairments and functional limitations in order to achieve goals. Electronically signed by: Orlando Ramirez, PT Please sign and return to therapist. Thank you for your referral.
== END 2025-04-08 11:34 | disposition home or self-care (01) ==
LOC: HO.PTCHIC 08:00
PROVIDERS: Visit Provider Physician Assistant Medical
DX: M23.91 Unspecified internal derangement of right knee (principal)
CPT/HCPCS: 97110; 97140; 97161

== ENCOUNTER 2025-02-04 08:43 | Outpatient (AMB) | payer OTHER, SELFPAY ==
--- NOTE | 2025-02-04 08:45 | A.OFFVIS_ITS ---
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 Per [facility] note this is a pivot and twist injury to the right knee. Patient has completed physical therapy here at [facility] and an MRI was done. Patient reports mild pain located at the medial and lateral aspect of knee. He complains of weakness and fears his knee will give out. He states physical therapy has helped. He continues to work with no restrictions. 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 He states he was lifting a ladder, twisting the knee felt pain, did not feel a pop. He was seen seen at [facility] few days later, xrays and MRI was ordered. He was sent to PT and felt some relief but continued. [facility] Medical History Bipolar disorder Psychosis Social History (Updated 02/04/25 @ 08:57 by Felicia Mcelroy Simba) Alcohol intake: current Comment: sleeping Tobacco use type: Smokeless Tobacco Years Smoked: Zyn pouches Current occupation: [employer] Review of Systems Const All systems reviewed & are unremarkable except as noted in HPI and below Physical Exam Vital Signs: BMI result Body Mass Index 31.0 Const General: cooperative and no acute distress Orientation/consciousness: patient oriented x3 Resp Effort & Inspection: normal respiratory effort and able to speak in complete sentences Cardio Peripheral pulses: Peripheral pulses 2+ throughout Neuro General: patient oriented x3 Extrem Other: Right knee normal to inspetion, no erythema or joint effusion, Full ROM with crepitus. No pain along the medial or lateral joint line. Shailesh supple non tender, nvi Office Procedures AMB Joint Injection/Aspiration Joint Injection/Aspiration Primary Site: right knee Prep: site was prepped using aseptic technique, ethochloride spray was applied and injection warnings given Injected: 40 mg of, with 3 mL of, 1% plain lidocaine, 0.25% bupivacaine, in the joint and decadron Approach Used: anterolateral Procedure: The patient tolerated the procedure well and there was some relief with the local anesthesia Coding 16124 - Glenohumeral/Tronchanteric Bursa/Intraarticular Procedure code (CPT) selection complete Results Reviewed Results Reviewed: Xrays were obtained in the office today and personally reviewed by me of the right knee show PF oa MR knee RT wo con IMPRESSION: Moderate osteoarthritis with articular cartilage loss greatest involving lateral facet of patella, lateral facet of trochlea, followed by the lateral compartment. See articular cartilage section. Suspected patellar tendon-lateral femoral condyle friction syndrome: There is edema like signal in the superior lateral fat pad of Hoffa. There is moderate patellofemoral incongruence and lateral patellar tilt. 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 There is a small parameniscal cyst near the anterior root of the lateral meniscus raising question of an occult tear. Additionally, there is a multiloculated cyst extending between posterior root of medial meniscus and tibial footprint of PCL. This could represent a parameniscal cyst from an occult root tear of the medial meniscal root versus a ganglion or synovial cyst associated with the PCL. Mild tendinopathy involving the deep proximal fibers of the patellar tendon of unlikely clinical significance. Correlate clinically. Electronically signed by: Phil Velazco MD 01/11/2025 10:29 AM EDT Assessment & Plan Assessment & Plan (1) Right patellofemoral syndrome: Code(s): M22.2X1 - Patellofemoral disorders, right knee Category: Medical Plan: We discussed options today which includes continued physical therapy to focus more on glute strength and posterior chain strengthening exercises. We also discussed the benefits of steroid injection which can help with his flare-up and continued pain. The patient did consent to injection today in the right knee which she tolerated well. He was also given a prescription for Celebrex to take twice a day for 2 weeks to help with the inflammation. He will continue working without restrictions and he will see me back in 6 weeks for follow up, sooner if needed. Orders: Orders PT Evaluation and Treatment Today M22.2X1 - Patellofemoral disorders, right knee Medications: New celecoxib (Celebrex) 200 mg PO BID 60 caps 3RF 30 days Coding Level of Care Code New Pt Level 3 (11888) Complex EM visit Add On G2211 Diagnoses Right patellofemoral syndrome M22.2X1 CPT Codes Coding - Joint 7: 03368 - Glenohumeral/Tronchanteric Bursa/Intraarticular ([id number])
[2025-02-04 08:57] VITALS: BMI 31.0
--- OUTSIDE RECORDS SUMMARY | 2025-02-04 09:25 | XMS_ITS | Continuity of Care Document ---
Author Name [facility] Organization [facility] Care Team Providers Care Buckle Frame Shaper Name Role Phone [facility] Unavailable Unavailable Problems Combined list of problems from Department of Defense and Veterans Affairs facilities. It does not include entries that were removed or entered in error. Problem Status Onset Date Problem Type Date of Resolution Comments Source visit for: single organ system exam psychiatric Inactive Condition DoD visit for: administrative purpose Active Condition DoD ANKLE SPRAIN Inactive Condition DoD ankle joint pain Active Condition DoD pain during urination (dysuria) Active Condition DoD FLAT FOOT Active Condition DoD patient activity at time of event - running Active Condition DoD OVEREXERTION FROM PROLONGED ACTIVITY Active Condition DoD NICOTINE DEPENDENCE - CONTINUOUS Active Condition DoD PLANTAR FASCIITIS LEFT Active Condition DoD visit for: screening exam Active Condition [facility] Administrative Evaluation Services Active Condition 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 DoD SOMATIC DYSFUNCTION OF THORACIC REGION Active Condition DoD lower back pain Active Condition DoD visit for: examination of subpopulation Active Condition 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 DoD BACKACHE Active Condition DoD NONALLOPATHIC LESIONS THORACIC Active Condition DoD midback pain Active Condition DoD ANKLE SPRAIN LEFT Inactive Condition DoD visit for: ears / hearing exam Active Condition DoD visit for: services physical Active Condition DoD Body Mass Index Active Condition DoD OBESITY Active Condition DoD Patient Education - Dietary Active Condition [facility] Anticipatory Guidance: Inadequate Physical Activity Active Condition DoD INGROWING TOENAIL Active Condition [facility] visit for: screening mental / developmental disorders Inactive Condition DoD visit for: occupational health / fitness exam Inactive Condition DoD Patient Counseling: Inactive Condition D oD Patient Education - Injury Prevention Active Condition DoD visit for: routine eye exam Inactive Condition DoD headache Active Condition DoD RHINITIS Active Condition DoD CONTACT DERMATITIS DUE TO PLANTS Active Condition 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 Reviewed by Dr. Telles [facility] visit for: services physical accession Inactive Condition DoD Allergies, Adverse Reactions, Alerts Combined list of allergies from Department of Defense and Veterans Affairs facilities. It does not include entries that were removed or entered in error. Substance Category Reaction Severity Reaction type Status Date Reported Comments Source AMOXICILLIN Drug allergy (disorder ) Unknown [place] 9 [facility] [place]THROMYCIN (ERYTHROMYCIN BASE) Drug allergy (disorder ) Unknown active 6 [facility] [place], [place] Penicillins Drug allergy (disorder ) Unknown active 6 [facility] [place], [place] Immunizations Combined list of available immunizations from the Department of Defense and Veterans Affairs facilities. Immunization Series Date Given Administered By Site Reaction Lot Number CVX Code Drug Diet Kitchen Cook Status Comments Source influenza virus vaccine, split virus (incl. purified surface antigen)-reti red CODE 1 2009 [id number] Chiron ([facility]) complet ed influenza virus vaccine, split virus (incl. purified surface antigen)- retired CODE [facility] Novel influenza-H1N 1-09, injectable 1 2009 [id number] 127 [employer] (NOV) complet ed Novel influenza -A0L0-49, injectabl e DoD influenza virus vaccine, live, attenuated, for intranasal use 1 2008 [id number] [employer], [employer]. (MED) complet ed influenza virus vaccine, live, attenuate d, for intranasa l use [facility] hepatitis A vaccine, adult dosage 2 2007 [id number] 52 Merck (MSD) complet ed hepatitis A vaccine, adult dosage DoD influenza virus vaccine, live, attenuated, for intranasal use 1 2007 [id number] [employer]. (MED) complet ed influenza virus vaccine, live, attenuate d, for intranasa l use DoD measles, mumps and rubella virus vaccine 1 2005 [id number] Merck (MSD) complet ed measles, mumps and rubella virus vaccine DoD poliovirus vaccine, inactivated 1 2005 [id number] Sanofi Pasteur ([facility]) complet ed polioviru s vaccine, inactivat ed [facility] influenza virus vaccine, split virus (incl. purified surface antigen)-reti red CODE 1 2005 [id number] 15 Sanofi Pasteur ([facility]) complet ed influenza virus vaccine, split virus (incl. purified surface antigen)- retired CODE DoD hepatitis A vaccine, adult dosage 1 2005 [id number] 52 SmithKline (SKB) complet ed hepatitis A vaccine, adult dosage DoD meningococcal polysaccharid e (groups A, C, Y and W-135) diphtheria toxoid conjugate vaccine (MCV4P) 1 2005 [id number] Sanofi Pasteur (PMC) complet ed meningoco ccal polysacch aride (groups A, C, Y and W-135) diphtheri a toxoid conjugate vaccine (MCV4P) DoD tetanus toxoid, reduced diphtheria toxoid, and acellular pertu is vaccine, adsorbed 1 2005 [id number] Sanofi Pasteur (PMC) complet ed tetanus toxoid, reduced diphtheri a toxoid, and acellular pertussis vaccine, adsorbed DoD hepatitis B vaccine, adult dosage 1 2005 NONE 43 (NON) Not Given hepatitis B vaccine, adult dosage DoD Encounters Combined list of: 1) Encounters from Department of Veterans Affairs facilities going backup to the last 18 months, not all VA inpatient encounters are included; 2) Encounters from the Department of Defense facilities going backup to 280 months. Location Location Details Encounter Type Encounter Number Reason For Visit Attending Provider ADM Date DC Date Status [facility] [place] [id number] DEYVI TELLES 10/10 Released w/o Limitations [facility] DIONISIO Rojas(IEP Optomet ry) [facility] Reinaldo Shah [place](C-TMC Er Module) OUTPATIENT [id number] JOSE Ingram 11/19 Released w/o Limitations [facility] DIONISIO Rojas(C-TM C Er Module) [facility] DIONISIO Rojas(C-TMC Er Module) OUTPATIENT [id number] sinus pain/co JAZMINE Harp V 01/10 Released w/o Limitations [facility] DIONISIO Rojas(C-TM C Er Module) [facility] DIONISIO Liang(1CDTF) OUTPATIENT [id number] cdtf screeni DEBI Naidu 02/13 Released w/o Limitations [facility] DIONISIO Rojas(1CDT F) [facility] BASHIR Nielsen([facility] ) OUTPATIENT [id number] need toe nail removed JESSE MURPHY 04/14 Released with Work/Duty Limitations [place] MEDDABASHIR Waddell([facility] Dr) [facility] KATHLEENDATommy Chiang [place]([facility] Dr) OUTPATIENT [id number] R/O left great toenail JESSE MURPHY 04/15 Released with Work/Duty Limitations [facility] BASHIR Morales([facility] Dr) [facility] BASHIR Morales(Preven tive Medicine) OUTPATIENT [id number] W2S KIRTI UBALDO 05/12 Released w/o Limitations [facility] KATHLEENDABASHIR Waddell(Prev entive Medicin e) [facility] KATHLEENDABASHIR Waddell(Nutrit ion Clinic Dr) OUTPATIENT [id number] w2s WILLOW FERRER 05/12 Released w/o Limitations [facility] KATHLEENDABASHIR Waddell(Nutr ition Clinic Dr) [facility] KATHLEENDABASHIR Waddell(Hearin g Conservat ion) OUTPATIENT [id number] annual ROCKY ESTRADA 05/15 Released w/o Limitations [facility] BASHIR Morales(Hear ing Conserv ation) [facility] KATHLEENDATommy Chiang [place]([facility] Dr) OUTPATIENT [id number] lt. ankle FOSUHENESOFY M. 06/18 Released w/o Limitations [facility] BASHIR Morales([facility] Dr) [facility] BASHIR Morales([facility] Dr) OUTPATIENT [id number] upper back pain JUANITA MANUEL Jose 07/27 Released w/o Limitations [facility] BASHIR Morales([facility] Dr) [facility] BASHIR Morales([facility] Dr) OUTPATIENT [id number] back JUANITA MANUEL Jose 08/30 Released w/o Limitations [facility] KATHLEENDABASHIR Waddell([facility] Dr) [facility] KATHLEENDABASHIR Waddell(Chirop ractic Clinic) OUTPATIENT [id number] BACKACH E LENKA MURRAY 09/01 Released w/o Limitations [facility] LUKASC BASHIR Nielsen(Chir opracti c Clinic) [facility] KATHLEENDABASHIR Waddell(Chirop ractic Clinic) OUTPATIENT [id number] lbp LENKA MURRAY 09/06 Released w/o Limitations [facility] MEDDAC BASHIR Nielsen(Chir opracti c Clinic) [facility] MEDDABASHIR Waddell(Optome try Clinic Dr) OUTPATIENT [id number] ree update rx and specs JOSE HIDALGO 09/10 Released w/o Limitations [facility] KATHLEENDABASHIR Waddell(Opto metry Clinic Dr) [facility] MEDDABASHIR Waddell(Chirop ractic Clinic) OUTPATIENT [id number] LENKA MURRAY 09/10 Released w/o Limitations [facility] KATHLEENDABASHIR Waddell(Chir opracti c Clinic) [facility] KATHLEENDATommy Chiang [place](Preven tive Medicine) OUTPATIENT [id number] W2S UBALDO COTTO 09/13 Released w/o Limitations [facility] BASHIR Morales(Prev entive Medicin e) [facility] KATHLEENDABASHIR Waddell(Nutrit ion Clinic Dr) OUTPATIENT [id number] W2S WILLOW FERRER 09/14 Released w/o Limitations [facility] KATHLEENDABASHIR Waddell(Nutr ition Clinic Dr) [facility] MEDDATommy Chiang [place]([facility] Dr) OUTPATIENT [id number] back pain CLINT MUNOZ 12/20 Released with Work/Duty Limitations [facility] BASHIR Morales([facility] Dr) [facility] MEDDABASHIR Waddell(Chirop ractic Clinic) OUTPATIENT [id number] LBP, mechani wale LENKA MURRAY 12/23 Released w/o Limitations [facility] KATHLEENDABASHIR Waddell([facility] opracti c Clinic) [facility] BASHIR Morales(Chirop ractic Clinic) OUTPATIENT [id number] l/s LENKA MURRAY 12/29 Released w/o Limitations [facility] MEDDAC BASHIR Nielsen([facility] opracti c Clinic) [facility] MEDDABASHIR Waddell(Chirop ractic Clinic) OUTPATIENT [id number] l/s LENKA MURRAY 01/05 Released w/o Limitations [facility] [employer] BASHIR Nielsen([facility] opracti c Clinic) [facility] [employer] BASHIR Nielsen([facility] Dr) OUTPATIENT [id number] ROCKY GARDINER 01/10 Released w/o Limitations [facility] BASHIR Morales([facility] Dr) [facility] CAMRYN Chiang [place]([facility] Dr) OUTPATIENT [id number] JUANITA PALENCIA 01/11 Released w/o Limitations [facility] KATHLEENDABASHIR Waddell([facility] Dr) [facility] BASHIR Morales(Preven tive Medicine) OUTPATIENT [id number] w2s LORELEI TATUM 03/14 Released w/o Limitations [facility] BASHIR Morales(Prev entive Medicin e) [facility] KATHLEENDABASHIR Waddell([facility] Dr) OUTPATIENT [id number] lbp, spasms ROCKY ADAM ALAN 04/04 Released with Work/Duty Limitations [facility] BASHIR Morales([facility] ) [facility] KATHLEENDABASHIR Waddell(Hearin g Conservat ion) OUTPATIENT [id number] pre 2008 ROCKY ESTRADA 05/21 Released w/o Limitations [facility] BASHIR Morales(Hear ing Conserv ation) [facility] CAMRYN Chiang [place]([facility] Dr) OUTPATIENT [id number] low back spasm KANNAN RADHA HUI 09/13 Released w/o Limitations [facility] BASHIR Morales([facility] Dr) [facility] BASHIR Morales([facility] Dr) OUTPATIENT [id number] CHAZ Cruz 10/05 Released w/o Limitations [facility] BASHIR Morales([facility] Dr) [facility] BASHIR Morales([facility] Physical Therapy Clinic) OUTPATIENT [id number] Divisio n Safety Day Foot Assessm ent CANDIDO PATEL 11/03 Released w/o Limitations [facility] BASHIR Morales([facility] Physica l Therapy Clinic) [facility] BASHIR Morales([facility] Dr) OUTPATIENT [id number] left foot ALEXIS BLANCO Lily 02/17 Released with Work/Duty Limitations [facility] BASHIR Morales([facility] Dr) [facility] KATHLEENDAC BASHIR Nielsen([facility] Dr) OUTPATIENT [id number] ? BLADDER INFECTI ON SOFY IVEY Jose 03/29 Released w/o Limitations [facility] KATHLEENDAC BASHIR Nielsen([facility] Dr) [facility] [place](Physic al Therapy [facility]) OUTPATIENT [id number] sick call - left ankle JUANI MONTALVO P 04/06 Released w/o Limitations [facility] [place], [place](Phys ical Therapy [facility]) [facility] [place]([facility] Dr) TELE CONSULT [id number] lab results SOFY IVEY 04/12 [facility] [place]([facility] Dr) [facility] [place](Hearin g Conservat ion) OUTPATIENT [id number] RAHUL Velasco 04/21 Released w/[facility] Limitations [facility] [place] [place] [place]Optome try Clinic Dr[facility] OUTPATIENT [id number] PEBBLES Childress V. 05/24 Released w/o Limitations [facility] [place](Opto [facility]ry Clinic Dr) [facility] [place]Hearin [place] Conservat [place] [facility]) OUTPATIENT [id number] hearing test WARREN SUGGS 05/24 Released w/o Limitations [facility] [place](Hear [place] ation [facility]) [facility] [place]([facility] Dr) OUTPATIENT [id number] Chapter Physica l- no profile s CHAZ DIAMOND 05/30 Released w/o Limitations [facility] [place]([facility] Dr) Procedures Combined list of: 1) Procedures from Department of Veterans Affairs facilities [facility], not all VA non-surgical procedures are included; 2) All procedures from the Department of Defense facilities. Procedure Procedure Type Code Date Perfomer Comments Sour e Psychiatric Evaluation Review of Records and Reports Psychiatric Evaluation Review of Records and Reports [id number] 06/21/19 11 COLTON CASSIDY [facility] Threshold Audiogram (Pure Tone) Threshold Audiogram (Pure Tone) [id number] 05/24/20 10 WARREN SUGGS Screening Test Of Visual Acuity, Quantitative, Bilateral Screening Test Of Visual Acuity, Quantitative, Bilateral 67542 05/24/20 10 PEBBLES GARCIA Audiometry Group Testing Audiometry Group Testing 44734 04/21/20 10 RAHUL MELENDEZ Ice cap or collar 04/06/20 10 JUANI MONTALVO Ankle orthosis, ankle gauntlet or similar, with or without joints, prefabricated, [id number] 04/06/20 10 JUANI MONTALVO Physical Therapy: ___ Se ion Segments, 15 Minutes Each Physical Therapy: ___ Session Segments, 15 Minutes Each 63291 04/06/20 10 JUANI MONTALVO Physical Medicine Physical Therapy Evaluation Physical Medicine Physical Therapy Evaluation 36579 04/06/20 10 JUANI MONTALVO Physical Medicine - Group Physical Therapy Se ion Physical Medicine - Group Physical Therapy Session [id number] 11/04/19 10 NICK RODRIGUEZ Motion Anal Computer-Based W/ Dyn Plant Pre Roxana Dur Walk Motion Anal Computer-Based W/ Dyn Plant Press Roxana Dur Walk 67724 11/04/19 10 NICK RODRIGUEZ Screening Test Of Visual Acuity, Quantitative, Bilateral Screening Test Of Visual Acuity, Quantitative, Bilateral 78591 10/06/[address]Supervised Services Provision Of Special Supplies -Supervised Services Provision Of Special Supplies [id number] 05/21/20 09 VESNA MONTGOMERY Threshold Audiogram (Pure Tone) Threshold Audiogram (Pure Tone) 11054 05/21/20 09 VESNA MONTGOMERY Medical Nutrition Therapy Group (2 or More Individual(s)) Medical Nutrition Therapy Group (2 or More Individual(s)) 02257 03/14/[address]Supervised Services Provision Of Educational Supplies -Supervised Services Provision Of Educational Supplies 19846 03/14/20 09 LORELEI TATUM Chiropractic Manip Treatmt (CMT) Spinal Three To Four Region Chiropractic Manip Treatmt (CMT) Spinal Three To Four Region 94677 01/06/20 09 LENKA MURRAY Modalities Heat Hot Packs Modalities Heat Hot Packs 95139 12/30/19 09 LENKA MURRAY Chiropractic Manip Treatmt (CMT) Spinal Three To Four Region Chiropractic Manip Treatmt (CMT) Spinal Three To Four Region 99324 12/30/19 09 LENKA MURRAY Training And Self-Care Skills Training And Self-Care Skills 55590 12/24/19 09 LENKA MURRAY Chiropractic Manip Treatmt (CMT) Spinal Three To Four Region Chiropractic Manip Treatmt (CMT) Spinal Three To Four Region 07535 12/24/19 09 LENKA MURRAY Medical Nutrition Therapy Group (2 or More Individual(s)) Medical Nutrition Therapy Group (2 or More Individual(s)) 57782 09/15/[address]Supervised Services Provision Of Educational Supplies -Supervised Services Provision Of Educational Supplies 09653 09/15/19 09 WILLOW FERRER Exercise cla es, non-physician provider, per se ion 09/14/19 09 UBALDO COTTO Ophthalmological New Patient Start Comprehensive Care Ophthalmological New Patient Start Comprehensive Care 97247 09/11/19 09 JOSE HIDALGO Spectacles Services Fitting Monofocals (Not For Aphakia) Spectacles Services Fitting Monofocals (Not For Aphakia) 19104 09/11/19 09 JOSE HIDALGO Determination Of Refractive State Determination Of Refractive State 68079 09/11/19 09 JOSE HIDALGO Manipulation By Physician, One Area Manipulation By Physician, One Area 60178 09/11/19 09 LENKA MURRAY Chiropractic Manip Treatmt (CMT) Spinal One To Two Regions Chiropractic Manip Treatmt (CMT) Spinal One To Two Regions 10800 09/11/19 09 LENKA MURRAY Modalities Electrical Stimulation Unattended Modalities Electrical Stimulation Unattended 53237 09/11/19 09 LENKA MURRAY Modalities Heat Hot Packs Modalities Heat Hot Packs 63705 09/11/19 09 LENKA MURRAY Chiropractic Manip Treatmt (CMT) Spinal One To Two Regions Chiropractic Manip Treatmt (CMT) Spinal One To Two Regions 42433 09/07/19 09 LENKA MURRAY cmt l/s Dena Modalities Heat Hot Packs Modalities Heat Hot Packs 49743 09/07/19 09 LENKA MURRAY Modalities Electrical Stimulation Unattended Modalities Electrical Stimulation Unattended 98399 09/07/19 09 LENKA MURRAY [facility] Training And Self-Care Skills Training And Self-Care Skills 65431 09/07/19 09 LENKA MURRAY pt. training/ho me care [facility] Chiropractic Manip Treatmt (CMT) Spinal One To Two Regions Chiropractic Manip Treatmt (CMT) Spinal One To Two Regions 94963 09/02/19 09 LENKA MURRAY ls [facility] Manipulation By Physician, One Area Manipulation By Physician, One Area 16489 09/02/19 09 LENKA MURRAY [facility] l/s [facility] Training And Self-Care Skills Training And Self-Care Skills 45425 09/02/19 09 LENKA MURRAY ptFloyd rehab instruction s/home care [facility] Osteopathic Manip Treatment (OMT) 1-2 Body Regions Involved Osteopathic Manip Treatment (OMT) 1-2 Body Regions Involved 54558 07/27/19 09 JUANITA MANUEL [facility] -Supervised Services Provision Of Special Supplies -Supervised Services Provision Of Special Supplies 82622 05/17/20 08 ROBERT SHAH [facility] Threshold Audiogram (Pure Tone) Threshold Audiogram (Pure Tone) 63546 05/17/20 08 ROBERT SHAH [facility] Medical Nutrition Therapy Group (2 or More Individual(s)) Medical Nutrition Therapy Group (2 or More Individual(s)) 06183 05/12/20 08 WILLOW FERRER [facility] Exercise cla es, non-physician provider, per se ion 05/12/20 08 UBALDO COTTO [facility] Complete Permanent Excision Nail, Matrix Left First Toe Complete Permanent Excision Nail, Matrix Left First Toe 08594 04/16/20 08 JESSE MURPHY [facility] Social Work Individual Outpatient Counseling 20-30 Minutes Social Work Individual Outpatient Counseling 20-30 Minutes 32396 11/21/19 07 CLINT CLAY [facility] Screening Test Of Visual Acuity, Quantitative, Bilateral Screening Test Of Visual Acuity, Quantitative, Bilateral 01149 02/14/20 06 ROHAN JEAN-BAPTISTE [facility] Eye Findings Dark Adaptation Exam 02/14/20 06 ROHAN JEAN-BAPTISTE Determination Of Refractive State Determination Of Refractive State 87634 10/11/19 06 DEYVI TELLES Screening Test Of Visual Acuity, Quantitative, Bilateral Screening Test Of Visual Acuity, Quantitative, Bilateral 46375 10/11/19 DEYVI TELLES [facility] Spectacles Services Fitting Monofocals (Not For Aphakia) Spectacles Services Fitting Monofocals (Not For Aphakia) 21944 10/11/19 DEYVI TELLES [facility] INDIVIDUAL PSYCHOTHERAPY, INSIGHT ORIENTED, BEHAVIOR MODIFYING AND/OR SUPPORTIVE, IN AN OFFICE OR OUTPATIENT FACILITY, APPROXIMATELY 20 TO 30 MINUTES WCCT-NN-DSOT WITH THE PATIENT 11/20/19 [facility] DIAGNOSTIC DARK ADAPTATION EXAMINATION WITH INTERPRETATION AND REPORT 02/14/20 [facility] FITTING OF SPECTACLES, EXCEPT FOR APHAKIA; MONOFOCAL 10/11/19 [facility] HEPATITIS A VACCINE (HEPA), ADULT DOSAGE, FOR INTRAMUSCULAR USE 10/02/19 [facility] SKIN TEST; TUBERCULOSIS, INTRADERMAL 09/27/19 [facility] PSYCHIATRIC EVALUATION OF HOSPITAL RECORDS, OTHER PSYCHIATRIC REPORTS, PSYCHOMETRIC AND/OR PROJECTIVE TESTS, AND OTHER ACCUMULATED DATA FOR MEDICALDIAGNOSTIC PURPOSES 06/20/19 11 [facility] PURE TONE AUDIOMETRY (THRESHOLD); AIR ONLY 05/24/20 10 [facility] SCREENING TEST OF VISUAL ACUITY, QUANTITATIVE, BILATERAL 05/24/20 10 [facility] AUDIOMETRIC TESTING OF GROUPS 04/21/20 10 [facility] ANKLE ORTHOSIS, ANKLE GAUNTLET OR SIMILAR, WITH OR WITHOUT JOINTS, PREFABRICATED, [id number] 04/06/20 10 [facility] COLLECTION OF VENOUS BLOOD BY VENIPUNCTURE 02/23/20 10 [facility] COMPREHENSIVE COMPUTER-BASED MOTION ANALYSIS BY VIDEO-TAPING AND 3D KINEMATICS; WITH DYNAMIC PLANTAR PRESSURE MEASUREMENTS DURING WALKING 11/04/19 10 [facility] SCREENING TEST OF VISUAL ACUITY, QUANTITATIVE, BILATERAL 10/06/19 10 [facility] SUPP &MATERIAL (EXCEPT SPECTACLE),PROVID,THE PHYS/OTH QUALIFIED HEALTH WELDING SPECIALIST OVER &ABOVE THOSE USUALLY INCLD W THE OFFICE VISIT/OTH SER RENDERED (LIST DRUG,TRAYS,SUPP,OR MATERIAL PROVID) 05/21/20 09 [facility] MEDICAL NUTRITION THERAPY; GROUP (2 OR MORE INDIVIDUAL(S)), EACH 30 MINUTES 03/14/20 [facility] SCREENING TEST OF VISUAL ACUITY, QUANTITATIVE, BILATERAL 01/12/20 09 [facility] CHIROPRACTIC MANIPULATIVE TREATMENT (CMT); SPINAL, 3-4 REGIONS 01/06/20 [facility] APPLICATION OF A MODALITY TO 1 OR MORE AREAS; HOT OR COLD PACKS 12/30/19 09 [facility] SELF-CARE/HOME MANAGMENT TRAIN (EG,ACT OF DAILY LIVING (ADL) &COMPENSAT TRAIN,MEAL PREPARATION,SAFETY PROCS,AND INSTRUCT IN USE OF ASST TECHNOLOGY DEV/ADPT EQUIP) DIR ONE-ON-ONE CONT,EA 15 MINUTES 12/24/19 [facility] EDUCATIONAL SUPPLIES, SUCH BOOKS, TAPES, AND PAMPHLETS, FOR THE PATIENT'S EDUCATION AT COST TO PHYSICIAN OR OTHER QUALIFIED HEALTH WELDING SPECIALIST 09/14/19 [facility] EXERCISE CLASSES, NON-PHYSICIAN PROVIDER, PER SESSION 09/14/19 [facility] MANUAL THERAPY TECHNIQUES (EG, MOBILIZATION/ MANIPULATION, MANUAL LYMPHATIC DRAINAGE, MANUAL TRACTION), 1 OR MORE REGIONS, EACH 15 MINUTES 09/11/19 [facility] OPHTHALMOLOGICAL SERVICES: MEDICAL EXAMINATION AND EVALUATION WITH INITIATION OF DIAGNOSTIC AND TREATMENT PROGRAM; COMPREHENSIVE, NEW PATIENT, 1 OR MORE VISITS 09/11/19 [facility] CHIROPRACTIC MANIPULATIVE TREATMENT (CMT); SPINAL, 1-2 REGIONS 09/07/19 [facility] CHIROPRACTIC MANIPULATIVE TREATMENT (CMT); SPINAL, 1-2 REGIONS 09/02/19 [facility] OSTEOPATHIC MANIPULATIVE TREATMENT (OMT); 1-2 BODY REGIONS INVOLVED 07/27/19 [facility] SUPP &MATERIAL (EXCEPT SPECTACLE),PROVID,THE PHYS/OTH QUALIFIED HEALTH WELDING SPECIALIST OVER &ABOVE THOSE USUALLY INCLD W THE OFFICE VISIT/OTH SER RENDERED (LIST DRUG,TRAYS,SUPP,OR MATERIAL PROVID) 05/15/20 [facility] EXERCISE CLASSES, NON-PHYSICIAN PROVIDER, PER SESSION 05/10/20 [facility] MEDICAL NUTRITION THERAPY; GROUP (2 OR MORE INDIVIDUAL(S)), EACH 30 MINUTES 05/10/20 [facility] EXCISION OF NAIL AND NAIL MATRIX, PARTIAL OR COMPLETE (EG, INGROWN OR DEFORMED NAIL), FOR PERMANENT REMOVAL 04/15/20 [facility] SKIN TEST; TUBERCULOSIS, INTRADERMAL 03/01/20 08 [facility] COLLECTION OF VENOUS BLOOD BY VENIPUNCTURE 03/01/20 [facility] Social History Combined list of available smoking, tobacco, and other social history from Department of Defense and Veterans Affairs facilities. Social History Type Response Date Comment Sourc e This section is an empty social history section. [employer]
--- OUTSIDE RECORDS SUMMARY | 2025-02-04 09:26 | XMS_ITS | Encounter Summary ---
Author Organization [facility] Address [address] [place] [phone] Phone Care Team Providers Care Vice President Client Services Name Role Phone Pcp, Unknown Primary Care Provider Unavailabl e Encounter Details Date Type Department Care Team (Late st Contact Info) Description 11/20/2021 Procedure Pass [facility], Ct Scan - [address] [address] Social History Tobacco Use Types Packs/Day Years [...] 11:39 AM EDT Timmy Garza, NIK * [place] Suicide Severity Rating Scale (Screener/Recent Self-Report) Question [...] documented as of this encounter Care Teams Vice President Client Services Relationship Specialty Start Date End Date Pcp, Unknown PCP - General 11/20/21 documented as of this encounter Additional Source Comments The information contained in this document represents components of the legal health record. It is not the complete legal health record.[facility]
--- OUTSIDE RECORDS SUMMARY | 2025-02-04 09:26 | XMS_ITS | Clinical Summary ---
Author Organization [facility] Address [address] [address] Phone Care Team Providers Care Director Security Risk Management Name Role Phone Pcp, Unknown Primary Care Provider Unavailabl e Allergies Active Allergy Reactions Criticality Noted Date Comments Amoxicillin Hives 06/13/2023 Penicillins Hives 03/06/2019 Medications dextroamphetami ne-amphetamine (ADDERALL) 20 mg Tab tablet Take 20 mg by mouth daily. Active traMADoL (ULTRAM) 50 mg tablet tramadol 50 mg tablet TAKE 1 TABLET EVERY 6 HOURS NEEDED Active moxifloxacin (VIGAMOX) 0.5 % ophthalmic solution INSTILL 1 DROP INTO AFFECTED EYE(S) 3 TIMES A DAY 3 Active lithium carbonate 300 MG capsule lithium carbonate 300 mg capsule Active lamoTRIgine (LAMICTAL) 150 MG IMMEDIATE release tablet lamotrigine 150 mg tablet Active lamoTRIgine (LAMICTAL) 100 MG IMMEDIATE release tablet TAKE 1 TABLET BY MOUTH DAILY FOR 2 WEEKS THEN TAKE 1.5 TABS BY MOUTH DAILY THEREAFTER Active famotidine (PEPCID) 20 MG tablet Take 1 tablet by mouth 2 (two) times a day. 3 Active DRYSOL DAB-O-MATIC 20 % external solution APPLY TO DRY SKIN IN ARMPITS EVERY NIGHT AT BEDTIME. 3 Active Active Problems No known active problems Social History Tobacco Use Types Packs/Day Years Used Date Smoking Tobacco: Former Cigarettes Smokeless Tobacco: Never Education Answer Date Recorded Are you interested in more education? Not on joceline e 10/05/2022 Are you concerned about learning? Not on file 10/05/2022 No 10/05/2022 No 10/05/2022 Digital Access Answer Date Recorded No 11/03/2022 No 11/03/2022 Reliable internet access at home? Not on file 11/03/2022 Device with a working camera? Not on file Sex and Gender Information Value Date Recorded Sex Assigned at Not on file Legal Sex Male 12:01 PM EDT Gender Identity Not on file Sexual Orientation Not on file Last Filed Vital Signs Vital Sign Reading Time Taken Comments Blood Pressure 117/65 06/13/2023 1:37 PM EST Pulse 62 06/13/2023 1:37 PM EST Temperature 37.1 C (98.7 F) 06/13/2023 1:37 PM EST Respiratory Rate 16 06/13/2023 1:37 PM EST Oxygen Saturation 100% 06/13/2023 1:37 PM EST Inhaled Oxygen Concentration - - Weight 108.9 kg (240 lb) 06/13/2023 1:37 PM EST per pt Height 185.4 cm (6' 1 ) 05/10/2023 5:16 PM EST Body Mass Index 31.66 05/10/2023 5:16 PM EST Plan of Treatment Health Maintenance Due Date Last Done Comments LIPID PANEL 1986 LITHIUM LEVEL 1986 TSH LEVEL 1986 DEPRESSION SCREENING 1998 SMOKING Hx and SMOKELESS TOBACCO SCREENING 1999 HEPATITIS C SCREENING 01/04/2004 HIV ONE-TIME SCREENING (18-6 5 YEARS) 01/04/2004 COVID-19 VACCINE (2 - 2023-2 5 season) 2024 06/12/2021 CREATININE LEVEL 06/13/2024 06/13/2023, 11/20/2021 SCREENING FOR DIABETES 06/13/2026 06/13/2023 Adult Td,Tdap Booster 11/28/2028 11/28/2018 HEPATITIS A VACCINES Aged Out No long er eligible based on patient's age to complete this topic HIB VACCINES Aged Out No longer eligi ble based on patient's age to complete this topic MENINGOCOCCAL VACCINES (ACWY) Aged Out No longer eligible based on patient's age to complete this topic MENINGOCOCCAL VACCINES (B) Aged Out N o longer eligible based on patient's age to complete this topic PNEUMOCOCCAL VACCINES (0-49 years) Aged Out No longer eligible b ased on patient's age to complete this topic Medical Devices Not on file Procedures Procedure Name Priority Date/Time Associated Diagnosis Comments COMPREHENSIVE METABOLIC PANEL Routine 06/13/2023 2:16 PM EST Viral upper respiratory tract infection from Last 3 Months or Most Recently Relevant to Health Maintenance Results * (ABNORMAL) Comprehensive metabolic panel (06/13/2023 2:16 PM EST) SODIUM 140 133 - 146 mmol/L [facility] POTASSIUM 4.2 3.3 - 5.1 mmol/L [facility] CHLORIDE 102 96 - 108 mmol/L [facility] CO2 27 21 - 35 mmol/L [facility] BUN 13 6 - 19 mg/dL [facility] CREATININE 0.80 0.5 - 1.5 mg/dL [facility] GLUCOSE 109(H) 70 - 99 mg/dL [facility] ALBUMIN 4.4 3.9 - 4.8 g/dL [facility] TOTAL PROTEIN 7.2 6.5 - 8.0 g/dL [facility] CALCIUM 9.9 8.4 - 10.3 mg/dL [facility] ALKALINE PHOSPHATASE 54 39 - 117 U/L [facility] TOTAL BILIRUBIN 0.3 0.0 - 1.2 mg/dL [facility] AST 29 0 - 37 U/L [facility] ALT 66(H) 0 - 40 U/L [facility] GLOBULIN 2.8 1 - 4.8 g/dL [facility] EGFR 117 >59 mL/min/1.7 3m2 [facility] Comment:Estimated glomerular filtration rate calculated using the CKD-EPI refit equation. ANION GAP 15 10 - 20 mmol/L [facility] Blood 06/13/2023 2:16 PM EST 06/13/2023 5:54 PM EST Herminia Samuel [facility] BLOOD ORDERABLES Final Result [address] [address] from Last 3 Months or Most Recently Relevant to Health Maintenance Insurance Care Teams Director Security Risk Management Relationship Specialty Start Date End Date Pcp, Unknown PCP - General 11/20/21 Additional Source Comments The information contained in this document represents components of the legal health record. It is not the complete legal health record.[facility]
== END 2025-02-04 09:48 | disposition home or self-care (01) ==
LOC: HO.HOS 08:44
PROVIDERS: Visit Provider Physician Assistant
DX: M22.2X1 Patellofemoral disorders, right knee (principal)
CPT/HCPCS: 20610; 99203

== ENCOUNTER → 2025-02-04 08:43 | Outpatient (BNVA) | payer OTHER, SELFPAY | PROVIDERS: Visit Provider Physician Assistant | DX: M22.2X1 Patellofemoral disorders, right knee (principal) | CPT/HCPCS: 20610; 99202; J0665; J1100; J2003 ==

== ENCOUNTER 2025-03-17 08:40 | Outpatient (AMB) | payer OTHER, SELFPAY ==
--- NOTE | 2025-03-17 08:48 | A.OFFVIS_ITS ---
Intake Visit Reasons: OV-WC injury RT knee, DOI: 10/12/24 Intake Note: Adam is a 40 year old male who presents today for a follow up of a work related injury to the right knee, DOI: 10/12/24. At his last visit he was given an injection and celebrex BID for 2 weeks was sent to pharmacy. He was instructed to continue attending physical therapy and follow up in 6 weeks. No work restrictions. Today patient reports that he continues to have soreness in his knee. He has not attended therapy, he states that he attempted to contact therapy but was told the order was not sent. Allergies Penicillins (PENICILLINS) Allergy (Intermediate, Verified 03/17/25 08:52) hives amoxicillin Allergy (Verified 03/17/25 08:52) Unknown azithromycin Allergy (Verified 03/17/25 08:52) unknown Medication List - Last Reconciled 03/17/25 by Marnie Mendoza PA-C celecoxib (Celebrex) 200 mg PO BID 30 days dextroamphetamine-amphetamine 20 mg 35 mg PO DAILY HPI HPI OV-WC injury RT knee, DOI: 10/12/24: Details: A 40-year-old gentleman returns to the office today for a follow-up right knee workman's comp injury date of injury 10/12/2024. He states the injection was somewhat helpful. He has not got back into physical therapy states he did not receive a phone call. And he also was unable to picking supervisor the Celebrex. He continues to have discomfort along the anterior portion of the knee and feels it is deep inside the joint. No catching locking or instability. [facility] Medical History Bipolar disorder Psychosis Social History (Updated 02/04/25 @ 08:57 by ELANA Mcclure) Alcohol intake: current Comment: sleeping Tobacco use type: Smokeless Tobacco Years Smoked: [employer] pou[employer] Current occupation: [employer] Review of Systems Const All systems reviewed & are unremarkable except as noted in HPI and below Physical Exam Const General: cooperative and no acute distress Orientation/consciousness: patient oriented x3 Resp Effort & Inspection: normal respiratory effort and able to speak in complete sentences Cardio Peripheral pulses: Peripheral pulses 2+ throughout Neuro General: patient oriented x3 Extrem Other: Right knee normal to inspetion, no erythema or joint effusion, Full ROM with crepitus. No pain along the medial or lateral joint line. Shailesh supple non tender, nvi Assessment & Plan Assessment & Plan (1) Right patellofemoral syndrome: Code(s): M22.2X1 - Patellofemoral disorders, right knee Category: Medical Plan: A recent the prescription for Celebrex to the pharmacy and encouraged him to take this twice a day for 2 weeks to help with his acute flare-ups. He would like to continue with physical therapy so I did place another order. I will see him back in 6 weeks for re-evaluation, sooner if needed. Medications: New celecoxib (Celebrex) 200 mg PO BID 60 caps 3RF 30 days Coding Level of Care Code Est Pt Level 3 (49119) Complex EM visit Add On G2211 Diagnoses Right patellofemoral syndrome M22.2X1
== END 2025-03-17 09:11 | disposition home or self-care (01) ==
LOC: HO.HOS 08:41
PROVIDERS: Visit Provider Physician Assistant
DX: M22.2X1 Patellofemoral disorders, right knee (principal)
CPT/HCPCS: 99213; G2211

== ENCOUNTER → 2025-03-17 08:40 | Outpatient (BNVA) | payer OTHER, SELFPAY | PROVIDERS: Visit Provider Physician Assistant | DX: M25.561 Pain in right knee (principal); M22.2X1 Patellofemoral disorders, right knee | CPT/HCPCS: 99212 ==

== ENCOUNTER 2025-04-28 09:44 | Outpatient (AMB) | payer OTHER, SELFPAY ==
--- NOTE | 2025-04-28 09:47 | MHC.OFFVIS ---
Vital Signs 04/28/25 09:53 Height 6 ft 1 in Weight 235 lb BMI 31.0 Intake Visit Reasons: OV-WC injury RT knee, DOI: 10/12/24 Intake Note: Adam is a 40 year old male who presents today for a follow up of a work related injury to the right knee, DOI: 10/12/24. At his last visit he was recommended to attend physical therapy. Today patient reports that he is doing okay, states no change in his symptoms since his last visit. He was not able to attend therapy, reporting he tried calling with no response back. Allergies Penicillins (PENICILLINS) Allergy (Intermediate, Verified 03/17/25 08:52) hives amoxicillin Allergy (Verified 03/17/25 08:52) Unknown azithromycin Allergy (Verified 03/17/25 08:52) unknown Medication List - Last Reconciled 04/28/25 by Marnie Mendoza PA-C celecoxib (Celebrex) 200 mg PO BID 30 days dextroamphetamine-amphetamine 20 mg 35 mg PO DAILY HPI HPI OV-WC injury RT knee, DOI: 10/12/24: Details: 40-year-old gentleman returns to the office today for a follow-up right knee pain date of injury 10/12/2024. He continues to have mild discomfort diffusely around the knee which is worse with loading activities such as stairs or squatting. He was unable to get back into physical therapy as he was discharged and they felt he met all goals. He does mentioned he has some low back discomfort which is likely associated to his weakness of the posterior chain. [facility] Medical History Bipolar disorder Psychosis Social History Alcohol intake: current Comment: sleeping Tobacco use type: Smokeless Tobacco Years Smoked: [employer] Current occupation: [employer] Review of Systems Const All systems reviewed & are unremarkable except as noted in HPI and below Physical Exam Const General: cooperative and no acute distress Orientation/consciousness: patient oriented x3 Resp Effort & Inspection: normal respiratory effort and able to speak in complete sentences Cardio Peripheral pulses: Peripheral pulses 2+ throughout Neuro General: patient oriented x3 Extrem Other: Right knee normal to inspetion, no erythema or joint effusion, Full ROM with crepitus. No pain along the medial or lateral joint line. Shailesh supple non tender, nvi Office Procedures AMB Joint Injection/Aspiration Joint Injection/Aspiration Primary Site: Right Knee Prep: site was prepped using aseptic technique, ethochloride spray was applied and injection warnings given Injected: 40 mg of, Decadron, 1% plain Lidocaine, 0.25% Bupivacaine and in the joint Approach Used: anterolateral Procedure: The patient tolerated the procedure well and there was some relief with the local anesthesia Coding 68383 - Glenohumeral/Tronchanteric Bursa/Intraarticular Procedure code (CPT) selection complete Assessment & Plan Assessment & Plan (1) Right patellofemoral syndrome: Code(s): M22.2X1 - Patellofemoral disorders, right knee Category: Medical Plan: I stressed the importance of working on exercises to strengthen condition the posterior chain. He may to modify activities that involve deep bending and squatting activities which may irritate the knee. He can occasionally use anti-inflammatories for acute flare-ups. Caution with long-term use as they can irritate the stomach lining/kidney function. We also discussed the role of steroid injection to help with managing his symptoms which she is interested in today. Right knee was injected today with steroid which she tolerated well. He will continue with activities as tolerated, working without restrictions. He will see me back if there is any questions or concerns otherwise follow up as needed. Coding Level of Care Code Est Pt Level 3 (89999) Complex EM visit Add On G2211 Diagnoses Right patellofemoral syndrome M22.2X1 CPT Codes Coding - Joint 7: 65811 - Glenohumeral/Tronchanteric Bursa/Intraarticular ([id number])
[2025-04-28 09:53] VITALS: BMI 31.0
--- OUTSIDE RECORDS SUMMARY | 2025-04-28 18:03 | XMS_ITS | Clinical Summary ---
Author Organization [facility] Address [address] [address] Phone Care Team Providers Care Front Desk Host Name Role Phone Pcp, Unknown Primary Care [...] HIV ONE-TIME SCREENING (18-6 5 YEARS) 01/04/2004 CREATININE LEVEL 06/13/2024 06/13/2023, 11/20/2021 INFLUENZA VACCINE (#1) 2025 02/27/2018 COVID-19 VACCINE (2 - 2024-2 6 season) 2025 06/12/2021 SCREENING FOR DIABETES 06/13/2026 06/13/2023 Adult Td,Tdap [...] Date/Time Associated Diagnosis Comments COMPREHENSIVE METABOLIC PANEL (CMP) Routine 06/13/2023 2:16 PM EST Viral upper respiratory tract infection from Last 3 Months or Most Recently Relevant to Health Maintenance Results * (ABNORMAL) Comprehensive metabolic panel (06/13/2023 2:16 PM EST) SODIUM 140 133 - 146 mmol/L [facility] POTASSIUM 4.2 3.3 - 5.1 mmol/L [facility] CHLORIDE 102 96 - 108 mmol/L [facility] CO2 27 21 - 35 mmol/L [facility] BUN 13 6 - 19 mg/dL [facility] CREATININE 0.80 0.5 - 1.5 mg/dL [facility] GLUCOSE 109(H) 70 - 99 mg/dL [facility] ALBUMIN 4.4 3.9 - 4.8 g/dL [facility] TOTAL PROTEIN 7.2 6.5 - 8.0 g/dL [facility] CALCIUM 9.9 8.4 - 10.3 mg/dL [facility] ALKALINE PHOSPHATASE 54 39 - 117 U/L [facility] TOTAL BILIRUBIN 0.3 0.0 - 1.2 mg/dL [facility] AST 29 0 - 37 U/L [facility] ALT 66(H) 0 - 40 U/L [facility] GLOBULIN 2.8 1 - 4.8 g/dL [facility] EGFR 117 >59 mL/min/1.7 3m2 [facility] Comment:Estimated glomerular filtration rate calculated using the CKD-EPI refit equation. ANION GAP 15 10 - 20 mmol/L [facility] Blood 06/13/2023 2:16 PM EST 06/13/2023 5:54 PM EST us Herminia Samuel [facility] BLOOD BKR ORDERABLES Fi nal Result [facility] [address] [place] [address] from Last 3 Months or Most Recently Relevant to Health Maintenance Insurance [address] [place], [place] [address] [place], [place] [address] [place], [place] [address] Care Teams Front Desk Host Relationship Specialty Start Date End Date Pcp, Unknown PCP - General 11/20/21 Additional Source Comments The information contained in this document represents components of the legal health record. It is not the complete legal health record.[facility]
--- OUTSIDE RECORDS SUMMARY | 2025-04-28 18:03 | XMS_ITS | Encounter Summary ---
Author Organization [facility] Address [address] [place] [id number] Phone Care Team Providers Care Android Software Engineer Name Role Phone Pcp, Unknown Primary Care Provider Unavailabl e Encounter Details Date Type Department Care Team (Late st Contact Info) Description 11/20/2021 Procedure Pass [facility], Ct Scan - [address] [address] Social History Tobacco Use Types Packs/Day Years [...] 11:39 AM EDT Timmy Garza, NIK * [place] Suicide Severity Rating Scale (Screener/Recent Self-Report) Question [...] documented as of this encounter Care Teams Android Software Engineer Relationship Specialty Start Date End Date Pcp, Unknown PCP - General 11/20/21 documented as of this encounter Additional Source Comments The information contained in this document represents components of the legal health record. It is not the complete legal health record.[facility]
== END 2025-04-28 10:08 | disposition home or self-care (01) ==
LOC: HO.HOS 09:45
PROVIDERS: Visit Provider Physician Assistant
DX: M22.2X1 Patellofemoral disorders, right knee (principal)
CPT/HCPCS: 20610; 99213

== ENCOUNTER → 2025-04-28 09:44 | Outpatient (BNVA) | payer OTHER, SELFPAY | PROVIDERS: Visit Provider Physician Assistant | DX: M22.2X1 Patellofemoral disorders, right knee (principal); M25.561 Pain in right knee | CPT/HCPCS: 20610; 99212; J0665; J1100; J2003 ==